=== PATIENT | female | born 1945 | race Caucasian/White ===

== ENCOUNTER → 2020-07-23 08:37 | Outpatient (BNVA) | payer MEDICARE, SELFPAY | PROVIDERS: PCP Nurse Practitioner Primary Care; Referring Provider Nurse Practitioner Primary Care; Visit Provider Internal Medicine Gastroenterology | DX: K22.70 Barrett's esophagus without dysplasia (principal); K59.01 Slow transit constipation | CPT/HCPCS: Q3014 ==

== ENCOUNTER → 2020-10-22 10:20 | Outpatient (BNVA) | payer MEDICARE, SELFPAY | PROVIDERS: PCP Nurse Practitioner Primary Care; Visit Provider Internal Medicine Gastroenterology | CPT/HCPCS: Q3014 ==

== ENCOUNTER 2020-12-01 11:05 | Day surgery (SDC) | payer MEDICARE, OTHER, SELFPAY ==
[2020-11-26 14:58] VITALS: BMI 19.5
--- NOTE | 2020-11-30 08:44 | HO.ANESPROP2 ---
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 Mother Hx of heat stroke Surgical History Surgical History History of breast lump/mass excision History of colonoscopy History of hysterectomy Hx of bilateral mastectomy Hx of cornea transplant Hx of endoscopy Social History Social History (Updated 11/26/20 @ 14:57 by Allison Gonzalez) Household Members: None Alcohol intake: never Smoking Status: Never smoker Use of substances other than those prescribed or required for medical reasons: No Advance Directives: No Advance Directives Information Provided: No Advance Directives on File: No Current occupational status: retired Meds Allergies Allergy/AdvReac Type Severity Reaction Status Date / Time clive [CLIVE] Allergy Severe Hives, Verified 11/26/20 14:56 facial swelling Penicillins [PCN] Allergy Severe HIVES Verified 11/26/20 14:56 poison maral extract Allergy Severe Hives, Verified 11/26/20 14:56 [POISON MARAL] facial swelling bee pollen [bee stings] Allergy Anaphylaxis Verified 11/26/20 14:57 Home Medications Medication Instructions Recorded Confirmed Last Taken Type amitriptyline 0.5 tab PO 3XW 11/26/20 11/26/20 Unknown History carboxymethylcellulose sodium 1 drp OPHTHALMIC (EYE) BID 11/26/20 11/26/20 Unknown History [Refresh Celluvisc] coQ10 (ubiquinol) 200 mg PO DAILY 11/26/20 11/26/20 Unknown History cyclosporine [Restasis] drp 11/26/20 Unknown History famotidine 40 mg PO BEDTIME 11/26/20 11/26/20 Unknown History fluoxetine 1 cap PO DAILY 11/26/20 11/26/20 Unknown History iron 11/26/20 Unknown History losartan 1 tab PO DAILY 11/26/20 11/26/20 Unknown History magnesium tab PO 11/26/20 Unknown History metformin 1 tab PO BID 11/26/20 11/26/20 Unknown History bocykcbdqedj-bkunfqbi-xxcwai 1 tab PO DAILY 11/26/20 11/26/20 Unknown History [Multivitamin 50 Plus] omega-3 fatty acids [Fish Oil] 1,000 mg PO DAILY 11/26/20 11/26/20 Unknown History oxcarbazepine tab PO 11/26/20 Unknown History pravastatin tab PO 11/26/20 Unknown History vit C,Y-Nm-vxhzf-lutein-zeaxan 1 tab PO BID 11/26/20 11/26/20 Unknown History [PreserVision AREDS-2] vitamin B complex [Super B Complex] 1 cap PO DAILY 11/26/20 11/26/20 Unknown History white petrolatum-mineral oil 1 appl OPHTHALMIC (EYE) BEDTIME 11/26/20 11/26/20 Unknown History [Systane Nighttime] zolpidem 1 tab PO BEDTIME PRN 11/26/20 11/26/20 Unknown History Exam Exam Date and Time: November 30, 2020 0844 Height,Weight and Vital Signs: Height 5 ft Weight 45.359 kg Narrative Narrative: EKG 2019: NSR, LAD, LBBB Assessment and Plan Assessment Anesthesia Assessment: Chart Reviewed Documented by User: Lou Crespo 12/01/20 12:04 [facility] Past Medical History Medical History Anxiety Arthritis DDD (degenerative disc disease) Depression Diabetes Elevated cholesterol GERD (gastroesophageal reflux disease) History of anemia HTN (hypertension) HX: breast cancer Left bundle branch block (LBBB) Low back pain Macular degeneration Weakness Family History Family History (Updated 07/23/20 @ 08:40 by Cristal Anderson CMA) Father No problems noted. Mother Hx of heat stroke Surgical History Surgical History History of breast lump/mass excision History of colonoscopy History of hysterectomy Hx of bilateral mastectomy Hx of cornea transplant Hx of endoscopy Social History Social History (Updated 11/26/20 @ 14:57 by Allison Gonzalez) Household Members: None Alcohol intake: never Smoking Status: Never smoker Use of substances other than those prescribed or required for medical reasons: No Advance Directives: No Advance Directives Information Provided: No Advance Directives on File: No Current occupational status: retired Meds Allergies Allergy/AdvReac Type Severity Reaction Status Date / Time clive [CLIVE] Allergy Severe Hives, Verified 11/26/20 14:56 facial swelling Penicillins [PCN] Allergy Severe HIVES Verified 11/26/20 14:56 poison maral extract Allergy Severe Hives, Verified 11/26/20 14:56 [POISON MARAL] facial swelling bee pollen [bee stings] Allergy Anaphylaxis Verified 11/26/20 14:57 Home Medications Medication Instructions Recorded Confirmed Last Taken Type amitriptyline 0.5 tab PO 3XW 11/26/20 11/26/20 Unknown History carboxymethylcellulose sodium 1 drp OPHTHALMIC (EYE) BID 11/26/20 11/26/20 Unknown History [Refresh Celluvisc] coQ10 (ubiquinol) 200 mg PO DAILY 11/26/20 11/26/20 Unknown History cyclosporine [Restasis] drp 11/26/20 Unknown History famotidine 40 mg PO BEDTIME 11/26/20 11/26/20 Unknown History fluoxetine 1 cap PO DAILY 11/26/20 11/26/20 Unknown History iron 11/26/20 Unknown History losartan 1 tab PO DAILY 11/26/20 11/26/20 Unknown History magnesium tab PO 11/26/20 Unknown History metformin 1 tab PO BID 11/26/20 11/26/20 Unknown History uiymowjxmmbv-echydqwo-yphmqm 1 tab PO DAILY 11/26/20 11/26/20 Unknown History [Multivitamin 50 Plus] omega-3 fatty acids [Fish Oil] 1,000 mg PO DAILY 11/26/20 11/26/20 Unknown History oxcarbazepine tab PO 11/26/20 Unknown History pravastatin tab PO 11/26/20 Unknown History vit C,Q-Km-vhxqk-lutein-zeaxan 1 tab PO BID 11/26/20 11/26/20 Unknown History [PreserVision AREDS-2] vitamin B complex [Super B Complex] 1 cap PO DAILY 11/26/20 11/26/20 Unknown History white petrolatum-mineral oil 1 appl OPHTHALMIC (EYE) BEDTIME 11/26/20 11/26/20 Unknown History [Systane Nighttime] zolpidem 1 tab PO BEDTIME PRN 11/26/20 11/26/20 Unknown History Exam Airway Mallampati Class: II (Missing multil tet) TM Dist: >3cm Neck ROM: Full Heart: RRr Lungs: CTa BL Assessment and Plan Assessment Anesthesia Assessment: Anesthesia Plan Discussed and Chart Reviewed Final Anesthetic Review NPO: Yes (Sip water with meds) ASA Class: III Final Preanesthetic Review: No Changes in Pt Med Stat and Consent Obtained/Reviewed Patient Risk: Intermediate Procedure Risk: Intermediate Anesthetic Plan Anesthetic Plan: MAC: Disposition: Standard PACU
[2020-12-01 11:46] LABS: Glucose, Whole Blood 152 mg/dL (60-115)
[2020-12-01 11:47] VITALS: BP 130/61; PULSE 78; RESP 18; TEMP 36.4; O2SAT 98
[2020-12-01] MEDS: Lactated Ringers 1,000 ML 100 ML IVCONT (11:53)
--- NOTE | 2020-12-01 11:57 | P.HPSUR_ITS ---
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 Relevant Family History (Specify if Yes): No Relevant Social History: None Present Medications: see Short Stay Collaborative assessment Medical History: Significant History (Anxiety Arthritis DDD (degenerative disc disease) Depression Diabetes Elevated cholesterol GERD (gastroesophageal reflux disease) History of anemia HTN (hypertension) HX: breast cancer Left bundle branch block (LBBB) Low back pain Macular degeneration Weakness) History of Previous Operations: Relevant previous surgery/procedure and date(s) (History of breast lump/mass excision History of colonoscopy History of hysterectomy Hx of bilateral mastectomy Hx of cornea transplant Hx of endoscopy) Allergies: Allergies Allergy/AdvReac Type Severity Reaction Status Date / Time clive [CLIVE] Allergy Severe Hives, Verified 11/26/20 14:56 facial swelling Penicillins [PCN] Allergy Severe HIVES Verified 11/26/20 14:56 poison maral extract Allergy Severe Hives, Verified 11/26/20 14:56 [POISON MARAL] facial swelling bee pollen [bee stings] Allergy Anaphylaxis Verified 11/26/20 14:57 Review of Systems Sugical H&P ROS: Negative: Constitution, Cardiovascular, Respiratory, Neurological, Psychiatric, Hem-Onc, Allergic/Immunologic, Gastrointestinal, Genitourinary, Musculoskeletal, Integumentary, Endocrine and Eyes/Ears/Nose/Throat Exam Surgical H&P Exam: Normal: HEENT, Normal: Heart, Normal: Lungs, Normal: Ex tremities, Normal: Abdomen, Normal: Skin and Normal: Neurological Plan Diagnosis/Plan: Unchanged I have reviewed the history and physical and performed a pertinent physical examination on my patient. No changes have occurred unless specified.
--- NOTE | 2020-12-01 13:05 | PM.OP ---
Brief Operative Note Date of Service: 12/01/20 Pre-op diagnosis: barretts with indefinite dysplasia Post-op diagnosis: same Procedure: see op note Surgeon: Suman Willett MD Anesthesia: MAC Estimated blood loss (mL): 0 Condition: stable Disposition: PACU
--- NOTE | 2020-12-01 13:06 | W.PM.OPN ---
Operative Note Operative Note Date of Service: 12/01/20 Narrative: Procedure Description: EGD FLEXIBLE TRANSORAL UPPER GASTROINTESTINAL ENDOSCOPY UPPER ENDOSCOPY Consent: Indications for the procedure and potential complications of bleeding, perforation, reaction to medications and missed diagnosis were discussed with the patient and informed consent was obtained. Instrument: Olympus GIF H 190 J mid size upper endoscope Monitoring: Vital signs and clinical assessment, continuous EKG monitoring, Pulse oximetry, Carbon Dioxide monitoring and blood pressure monitoring were done throughout the procedure. Procedure: The patient was placed in the left lateral decubitis position and pre-procedure medications were administered and a bite block was placed. The endoscope was inserted into the mouth and advanced under direct vision to the third part of duodenum. A careful inspection was made as the upper endoscope was withdrawn including a retroflexed examination of the proximal stomach; Findings and interventions are described below. Findings: Larynx:normal Esophagus: GE junction at 38 cm, diaphragm hiatus at 40 cm, salmon pink mucosa noted consistent with Barretts esophagus (this was better appreciated today as we used a distal attachment as compared to prior exams). this appeared to be [place] classification C1M3. The side with the tmucosal tongues was raised using the ERBE jet and then ablated with APC 60 W. This was then desloughed using the distal cap and then reablated with 40 W of APC. Stomach: Normal mucosa. Grade 3 flap valve on retroflexed examination of the cardia. Duodenum: Normal bulb and descending duodenum Intervention: Hybrid APC ablation of Garcia mucosa Impression/Findings: Barretts hiatal hernia PLAN: cont with PPI soft diet today and advance tomorrow as tolerated repeat EGD in 12 weeks
[2020-12-01 13:08] VITALS: BP 105/46; PULSE 99; RESP 16; TEMP 36.3; O2SAT 97
[2020-12-01 13:23] VITALS: BP 127/53; PULSE 83; RESP 17; TEMP 36.3; O2SAT 99
[2020-12-01 13:38] VITALS: BP 141/73; PULSE 82; RESP 18; O2SAT 99
[2020-12-01 13:53] VITALS: BP 125/85; PULSE 80; RESP 18; O2SAT 99
== END 2020-12-01 14:22 | disposition home or self-care (01) ==
PROVIDERS: PCP Nurse Practitioner Primary Care; Visit Provider Internal Medicine Gastroenterology
PROC: 0DJ08ZZ Inspection of Upper Intestinal Tract, Via Natural or Artificial Opening Endoscopic (ICD-10-PCS; CPT 43235; principal; 2020-12-01 12:30)
DX: K22.719 Barrett's esophagus with dysplasia, unspecified (principal); K44.9 Diaphragmatic hernia without obstruction or gangrene; E11.9 Type 2 diabetes mellitus without complications; I10 Essential (primary) hypertension; Z79.84 Long term (current) use of oral hypoglycemic drugs; Z79.899 Other long term (current) drug therapy; Z85.3 Personal history of malignant neoplasm of breast; Z92.21 Personal history of antineoplastic chemotherapy; Z92.3 Personal history of irradiation; Z88.0 Allergy status to penicillin
CPT/HCPCS: 43270; 82947; C2618; Q9968

== ENCOUNTER 2021-03-03 09:19 | Day surgery (SDC) | payer MEDICARE, OTHER, SELFPAY ==
[2021-02-25 14:20] VITALS: BMI 19.5
[2021-03-03 09:48] VITALS: BP 166/79; PULSE 69; RESP 16; TEMP 36.8; O2SAT 99
--- NOTE | 2021-03-03 10:02 | HO.ANESPROP2 ---
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 Mother Hx of heat stroke Surgical History Surgical History History of breast lump/mass excision History of colonoscopy History of hysterectomy Hx of bilateral mastectomy Hx of cornea transplant Hx of endoscopy Social History Social History (Updated 11/26/20 @ 14:57 by Allison Gonzalez) Household Members: None Alcohol intake: never Patient Tobacco Use Status: Never used Tobacco Use of substances other than those prescribed or required for medical reasons: No Advance Directives: No Advance Directives Information Provided: No Advance Directives on File: No Current occupational status: retired Meds Allergies Allergy/AdvReac Type Severity Reaction Status Date / Time clive [CLIVE] Allergy Severe Hives, Verified 03/03/21 10:01 facial swelling Penicillins [PCN] Allergy Severe HIVES Verified 03/03/21 10:01 poison maral extract Allergy Severe Hives, Verified 03/03/21 10:01 [POISON MARAL] facial swelling bee pollen [bee stings] Allergy Anaphylaxis Verified 03/03/21 10:01 Home Medications Medication Instructions Recorded Confirmed Last Taken Type amitriptyline 0.5 tab PO 3XW 11/26/20 02/25/21 Unknown History carboxymethylcellulose sodium 1 drp OPHTHALMIC (EYE) BID 11/26/20 02/25/21 Unknown History [Refresh Celluvisc] coQ10 (ubiquinol) 200 mg PO DAILY 11/26/20 02/25/21 Unknown History cyclosporine [Restasis] drp 11/26/20 Unknown History fluoxetine 1 cap PO DAILY 11/26/20 02/25/21 Unknown History iron 11/26/20 Unknown History losartan 1 tab PO DAILY 11/26/20 02/25/21 Unknown History magnesium tab PO 11/26/20 Unknown History metformin 1 tab PO BID 11/26/20 02/25/21 Unknown History kkrbuwtbzxoc-resdutqt-cloqzv 1 tab PO DAILY 11/26/20 02/25/21 Unknown History [Multivitamin 50 Plus] omega-3 fatty acids [Fish Oil] 1,000 mg PO DAILY 11/26/20 02/25/21 Unknown History oxcarbazepine tab PO 11/26/20 Unknown History pravastatin tab PO 11/26/20 Unknown History vit C,M-Zo-ialxu-lutein-zeaxan 1 tab PO BID 11/26/20 02/25/21 Unknown History [PreserVision AREDS-2] vitamin B complex [Super B Complex] 1 cap PO DAILY 11/26/20 02/25/21 Unknown History white petrolatum-mineral oil 1 appl OPHTHALMIC (EYE) BEDTIME 11/26/20 02/25/21 Unknown History [Systane Nighttime] zolpidem 1 tab PO BEDTIME PRN 11/26/20 02/25/21 Unknown History Exam Exam Date and Time: March 03, 2021 1002 Height,Weight and Vital Signs: Height 5 ft Weight 99 lb 13.91 oz Last Vital Signs Temp 98.2 F 03/03/21 09:48 Pulse 69 03/03/21 09:48 Resp 16 03/03/21 09:48 BP 166/79 H 03/03/21 09:48 Pulse Ox 99 03/03/21 09:48 Airway TM Dist: >3cm Neck ROM: Full Denture: Upper Loose/Missing/Broken Teeth: No Heart: RRRNL Assessment and Plan Assessment Anesthesia Assessment: Anesthesia Plan Discussed and Chart Reviewed Final Anesthetic Review NPO: Yes ASA Class: III Final Preanesthetic Review: No Changes in Pt Med Stat, Meds/Allgs Chart Reviewed, Consent Obtained/Reviewed and Anes Risks/Benef Reviewed Patient Risk: Intermediate Procedure Risk: Low Anesthetic Plan Anesthetic Plan: MAC: Disposition: Standard PACU
[2021-03-03 10:06] LABS: Glucose, Whole Blood 151 mg/dL (60-115)
[2021-03-03] MEDS: Lactated Ringers 1,000 ML 50 ML IVCONT (10:23)
--- NOTE | 2021-03-03 10:34 | P.HPSUR_ITS ---
Pre-Procedural Eval Section A Date of Service: 03/03/21 Section B Chief Complaint: barretts esophagus Relevant Family History (Specify if Yes): No Relevant Social History: None Present Medications: see Short Stay Collaborative assessment Medical History: Significant History (Anxiety Arthritis Garcia esophagus DDD (degenerative disc disease) Depression Diabetes Elevated cholesterol GERD (gastroesophageal reflux disease) History of anemia HTN (hypertension) HX: breast cancer Left bundle branch block (LBBB) Low back pain Macular degeneration Weakness) History of Previous Operations: Relevant previous surgery/procedure and date(s) (History of breast lump/mass excision History of colonoscopy History of hysterectomy Hx of bilateral mastectomy Hx of cornea transplant Hx of endoscopy) Allergies: Allergies Allergy/AdvReac Type Severity Reaction Status Date / Time clive [CLIVE] Allergy Severe Hives, Verified 03/03/21 10:01 facial swelling Penicillins [PCN] Allergy Severe HIVES Verified 03/03/21 10:01 poison maral extract Allergy Severe Hives, Verified 03/03/21 10:01 [POISON MARAL] facial swelling bee pollen [bee stings] Allergy Anaphylaxis Verified 03/03/21 10:01 Review of Systems Sugical H&P ROS: Negative: Constitution, Cardiovascular, Respiratory, Neurological, Psychiatric, Hem-Onc, Allergic/Immunologic, Gastrointestinal, Genitourinary, Musculoskeletal, Integumentary, Endocrine and Eyes/Ears/Nose /Throat Exam Surgical H&P Exam: Normal: HEENT, Normal: Heart, Normal: Lungs, Normal: Extremities, Normal: Abdomen, Normal: Skin and Normal: Neurological Plan Diagnosis/Plan: Unchanged I have reviewed the history and physical and performed a pertinent physical examination on my patient. No changes have occurred unless specified.
--- NOTE | 2021-03-03 10:36 | P.BOP_ITS ---
Brief Operative Note Date of Service: 03/03/21 Pre-op diagnosis: barretts, for treatment with hybrid APC Post-op diagnosis: same Procedure: see op note Surgeon: Suman Willett MD Anesthesia: MAC Was an Electric Detector Operator used for this Procedure?: No Estimated blood loss (mL): 0 Condition: stable Disposition: PACU
--- NOTE | 2021-03-03 10:36 | W.PM.OPN ---
Operative Note Operative Note Date of Service: 03/03/21 Narrative: Procedure Description: EGD FLEXIBLE TRANSORAL UPPER GASTROINTESTINAL ENDOSCOPY UPPER ENDOSCOPY Consent: Indications for the procedure and potential complications of bleeding, perforation, reaction to medications and missed diagnosis were discussed with the patient and informed consent was obtained. Instrument: Olympus GIF H 190 J mid size upper endoscope Monitoring: Vital signs and clinical assessment, continuous EKG monitoring, Pulse oximetry, Carbon Dioxide monitoring and blood pressure monitoring were done throughout the procedure. Procedure: The patient was placed in the left lateral decubitis position and pre-procedure medications were administered and a bite block was placed. The endoscope was inserted into the mouth and advanced under direct vision to the third part of duodenum. A careful inspection was made as the upper endoscope was withdrawn including a retroflexed examination of the proximal stomach; Findings and interventions are described below. Findings: Larynx:normal Esophagus: GE junction at 38 cm, diaphragm hiatus at 40 cm, salmon pink mucosa noted consistent with Barretts esophagus C0 M1 by [place] classification which was much improved from before. There was mild esophagitis at the GEJ. Biopsies were taken as well as brushings for WATS3D. The side with the mucosal tongue was raised using the ERBE jet and then ablated with APC 60 W. Stomach: Normal mucosa. Grade 3 flap valve on retroflexed examination of the cardia. Duodenum: Normal bulb and descending duodenum Intervention: Hybrid APC ablation of Garcia mucosa Impression/Findings: Barretts hiatal hernia PLAN: cont with PPI soft diet today and advance tomorrow as tolerated repeat EGD in 12 weeks pt did vomit a small amount during the procedure and suctioned thoroughly, will need to monitor for aspiration in post op
[2021-03-03 11:44] VITALS: BP 134/67; PULSE 78; RESP 14; TEMP 36.2; O2SAT 97
[2021-03-03] MEDS: Mag&Al/Sim/Diphenhyd/Lidocaine 10 ML ORAL.SUSP PO (11:59)
[2021-03-03 12:00] VITALS: BP 142/76; PULSE 72; RESP 16; O2SAT 97
[2021-03-03] MEDS: Pantoprazole Sodium 40 MG/10 ML VIAL IVPUSH (12:03)
[2021-03-03 12:15] VITALS: BP 146/80; PULSE 74; RESP 16; O2SAT 99
[2021-03-03 12:29] VITALS: BP 124/82; PULSE 73; RESP 16; TEMP 36.2; O2SAT 99
[2021-03-03 12:45] VITALS: BP 164/78; PULSE 66; RESP 16; O2SAT 98
[2021-03-03] MEDS: Acetaminophen 325 MG TABLET 975 MG PO (12:57)
== END 2021-03-03 13:32 | disposition home or self-care (01) ==
PROVIDERS: PCP Nurse Practitioner Primary Care; Visit Provider Internal Medicine Gastroenterology
PROC: 0DJ08ZZ Inspection of Upper Intestinal Tract, Via Natural or Artificial Opening Endoscopic (ICD-10-PCS; CPT 43235; principal; 2021-03-03 10:40)
DX: K22.70 Barrett's esophagus without dysplasia (principal); K21.9 Gastro-esophageal reflux disease without esophagitis; K20.80 Other esophagitis without bleeding; K44.9 Diaphragmatic hernia without obstruction or gangrene; E11.9 Type 2 diabetes mellitus without complications; I10 Essential (primary) hypertension; I44.7 Left bundle-branch block, unspecified; Z85.3 Personal history of malignant neoplasm of breast; Z92.21 Personal history of antineoplastic chemotherapy; Z92.3 Personal history of irradiation; Z94.7 Corneal transplant status; Z79.84 Long term (current) use of oral hypoglycemic drugs; Z79.899 Other long term (current) drug therapy
CPT/HCPCS: 43270; 43239; 82947; 88305; C2618; J2405; Q9968

== ENCOUNTER → 2021-03-28 13:22 | Outpatient (BNVA) | payer MEDICARE, MEDICAID, SELFPAY | PROVIDERS: PCP Nurse Practitioner Primary Care; Visit Provider Internal Medicine Gastroenterology | DX: K22.719 Barrett's esophagus with dysplasia, unspecified (principal); K59.01 Slow transit constipation | CPT/HCPCS: Q3014 ==

== ENCOUNTER 2021-06-23 10:07 | Day surgery (SDC) | payer MEDICARE, OTHER, SELFPAY ==
--- NOTE | 2021-06-22 10:12 | HO.ANESPROP2 ---
Documented by User: Audra Wild NP 06/22/21 10:12 HPI - Anesthesia Eval Consult details Narrative: 76yo F for Upper Endoscopy with APC PMFSH Active Problems Active Problems: All Active Problems (Updated 06/17/21 @ 14:04 by Xiomara Vargas, RN) Garcia esophagus (Acute) Constipation by delayed colonic transit (Acute) Past Medical History Medical History (Updated 06/17/21 @ 14:04 by Xiomara Vargas, RN) Anxiety Arthritis Garcia esophagus Cataract fragments in eye following surgery DDD (degenerative disc disease) Depression Diabetes Elevated cholesterol GERD (gastroesophageal reflux disease) Hiatal hernia History of anemia HTN (hypertension) HX: breast cancer Left bundle branch block (LBBB) Low back pain Macular degeneration Weakness Family History Family History Father No problems noted. Mother Hx of heat stroke Surgical History Surgical History History of breast lump/mass excision History of colonoscopy History of hysterectomy Hx of bilateral mastectomy Hx of cornea transplant Hx of endoscopy Social History Social History Household Members: None Alcohol intake: never Patient Tobacco Use Status: Never used Tobacco Use of substances other than those prescribed or required for medical reasons: No Are you DNR?: No Advance Directives: No Advance Directives Information Provided: Yes Current occupational status: retired Meds Allergies Allergy/AdvReac Type Severity Reaction Status Date / Time clive [CLIVE] Allergy Severe Hives, Verified 03/28/21 13:23 facial swelling Penicillins [PCN] Allergy Severe HIVES Verified 03/28/21 13:23 poison maral extract Allergy Severe Hives, Verified 03/28/21 13:23 [POISON MARAL] facial swelling bee pollen [bee stings] Allergy Anaphylaxis Verified 03/28/21 13:23 Home Medications Medication Instructions Recorded Confirmed Last Taken Type carboxymethylcellulose sodium 1 % 1 drp OPHTHALMIC (EYE) BID 11/26/20 06/17/21 Unknown History eye drops in a dropperette coQ10 (ubiquinol) 100 mg capsule 200 mg PO DAILY 11/26/20 06/17/21 Unknown History cyclosporine 0.05 % eye drops in a drp 11/26/20 Unknown History dropperette (Restasis) fluoxetine 20 mg capsule 1 cap PO DAILY 11/26/20 06/17/21 Unknown History iron 11/26/20 Unknown History losartan 25 mg tablet 1 tab PO DAILY 11/26/20 06/17/21 Unknown History magnesium tab PO 11/26/20 Unknown History metformin 1,000 mg tablet 1 tab PO BID 11/26/20 06/17/21 Unknown History pmwkvdxmoiyf-txoktlop-rvmieo 1 tab PO DAILY 11/26/20 06/17/21 Unknown History tablet (Multivitamin 50 Plus) omega-3 fatty acids 1,000 mg PO DAILY 11/26/20 06/17/21 Unknown History oxcarbazepine 300 mg tablet 300 tab PO DAILY 11/26/20 06/17/21 Unknown History pravastatin 10 mg tablet 10 tab PO DAILY 11/26/20 06/17/21 Unknown History vit C 250 mg-vit E 90 mg-zinc 40 1 tab PO BID 11/26/20 06/17/21 Unknown History mg-copper 1 iw-amzsop-wdocie capsule (PreserVision AREDS-2) vitamin B complex 1 cap PO DAILY 11/26/20 06/17/21 Unknown History white petrolatum-mineral oil 94 1 appl OPHTHALMIC (EYE) BEDTIME 11/26/20 06/17/21 Unknown History %-3 % eye ointment (Systane Nighttime) zolpidem 10 mg tablet 1 tab PO BEDTIME PRN 11/26/20 06/17/21 Unknown History Exam Exam Date and Time: June 22, 2021 1012 Assessment and Plan Assessment Anesthesia Assessment: Chart Reviewed Documented by User: Sara Quiros MD 06/23/21 10:33 [facility], [facility] Past Medical History Medical History (Updated 06/17/21 @ 14:04 by Xiomara Vargas RN) Anxiety Arthritis Garcia esophagus Cataract fragments in eye following surgery DDD (degenerative disc disease) Depression Diabetes Elevated cholesterol GERD (gastroesophageal reflux disease) Hiatal hernia History of anemia HTN (hypertension) HX: breast cancer Left bundle branch block (LBBB) Low back pain Macular degeneration Weakness Functional capacity: independent ambulation Patient : No Family History Family History Father No problems noted. Mother Hx of heat stroke Surgical History Surgical History History of breast lump/mass excision History of colonoscopy History of hysterectomy Hx of bilateral mastectomy Hx of cornea transplant Hx of endoscopy History of Problems with Anesthesia: No Social History Social History Household Members: None Alcohol intake: never Patient Tobacco Use Status: Never used Tobacco Use of substances other than those prescribed or required for medical reasons: No Are you DNR?: No Advance Directives: No Advance Directives Information Provided: Yes Current occupational status: retired Meds Allergies Allergy/AdvReac Type Severity Reaction Status Date / Time clive [CLIVE] Allergy Severe Hives, Verified 03/28/21 13:23 facial swelling Penicillins [PCN] Allergy Severe HIVES Verified 03/28/21 13:23 poison maral extract Allergy Severe Hives, Verified 03/28/21 13:23 [POISON MARAL] facial swelling bee pollen [bee stings] Allergy Anaphylaxis Verified 03/28/21 13:23 Home Medications Medication Instructions Recorded Confirmed Last Taken Type carboxymethylcellulose sodium 1 % 1 drp OPHTHALMIC (EYE) BID 11/26/20 06/17/21 Unknown History eye drops in a dropperette coQ10 (ubiquinol) 100 mg capsule 200 mg PO DAILY 11/26/20 06/17/21 Unknown History cyclosporine 0.05 % eye drops in a drp 11/26/20 Unknown History dropperette (Restasis) fluoxetine 20 mg capsule 1 cap PO DAILY 11/26/20 06/17/21 Unknown History iron 11/26/20 Unknown History losartan 25 mg tablet 1 tab PO DAILY 11/26/20 06/17/21 Unknown History magnesium tab PO 11/26/20 Unknown History metformin 1,000 mg tablet 1 tab PO BID 11/26/20 06/17/21 Unknown History mgthjwstcyky-zacaevjg-cbirud 1 tab PO DAILY 11/26/20 06/17/21 Unknown History tablet (Multivitamin 50 Plus) omega-3 fatty acids 1,000 mg PO DAILY 11/26/20 06/17/21 Unknown History oxcarbazepine 300 mg tablet 300 tab PO DAILY 11/26/20 06/17/21 Unknown History pravastatin 10 mg tablet 10 tab PO DAILY 11/26/20 06/17/21 Unknown History vit C 250 mg-vit E 90 mg-zinc 40 1 tab PO BID 11/26/20 06/17/21 Unknown History mg-copper 1 gn-ulzyun-gsjunu capsule (PreserVision AREDS-2) vitamin B complex 1 cap PO DAILY 11/26/20 06/17/21 Unknown History white petrolatum-mineral oil 94 1 appl OPHTHALMIC (EYE) BEDTIME 11/26/20 06/17/21 Unknown History %-3 % eye ointment (Systane Nighttime) zolpidem 10 mg tablet 1 tab PO BEDTIME PRN 11/26/20 06/17/21 Unknown History Exam Airway TM Dist: >3cm Neck ROM: Full Assessment and Plan Final Anesthetic Review History of Problems with Anesthesia: No
--- NOTE | 2021-06-23 09:44 | MHC.SHP ---
Pre-Procedural Eval Section A Date of Service: 06/23/21 Section B Chief Complaint: barretts esophagus with indefinite dysplasia Relevant Family History (Specify if Yes): No Relevant Social History: None Present Medications: see Short Stay Collaborative assessment Medical History: Significant History (Anxiety Arthritis Garcia esophagus Cataract fragments in eye following surgery DDD (degenerative disc disease) Depression Diabetes Elevated cholesterol GERD (gastroesophageal reflux disease) Hiatal hernia History of anemia HTN (hypertension) HX: breast cancer Left bundle branch block (LBBB) Low ashok) History of Previous Operations: Relevant previous surgery/procedure and date(s) (History of breast lump/mass excision History of colonoscopy History of hysterectomy Hx of bilateral mastectomy Hx of cornea transplant Hx of endoscopy) Allergies: Allergies Allergy/AdvReac Type Severity Reaction Status Date / Time clive [CLIVE] Allergy Severe Hives, Verified 03/28/21 13:23 facial swelling Penicillins [PCN] Allergy Severe HIVES Verified 03/28/21 13:23 poison maral extract Allergy Severe Hives, Verified 03/28/21 13:23 [POISON MARAL] facial swelling bee pollen [bee stings] Allergy Anaphylaxis Verified 03/28/21 13:23 Review of Systems Sugical H&P ROS: Negative: Constitution, Cardiovascular, Respiratory, Neurological, Psychiatric, Hem-Onc, Allergic/Immunologic, Gastrointestinal, Genitourinary, Musculoskeletal, Integumentary, Endocrine and Eyes/Ears/Nose/Throat Exam Surgical H&P Exam: Normal: HEENT, Normal: Heart, Normal: Lungs, Normal: Extremities, Normal: Abdomen, Normal: Skin and Normal: Neurological Plan Diagnosis/Plan: Unchanged I have reviewed the history and physical and performed a pertinent physical examination on my patient. No changes have occurred unless specified.
[2021-06-23 10:21] VITALS: BMI 17.9
[2021-06-23 10:37] VITALS: BP 174/74; PULSE 64; RESP 16; TEMP 36.8; O2SAT 99
[2021-06-23] MEDS: Lactated Ringers 1,000 ML 100 ML IVCONT (10:38)
--- NOTE | 2021-06-23 10:42 | HO.ANESPROP2 ---
[facility] Active Problems Active Problems: All Active Problems (Updated 06/17/21 @ 14:04 by Xiomara Vargas, RN) Garcia esophagus (Acute) Constipation by delayed colonic transit (Acute) Past Medical History Medical History (Updated 06/17/21 @ 14:04 by Xiomara Vargas, RN) Anxiety Arthritis Garcia esophagus Cataract fragments in eye following surgery DDD (degenerative disc disease) Depression Diabetes Elevated cholesterol GERD (gastroesophageal reflux disease) Hiatal hernia History of anemia HTN (hypertension) HX: breast cancer Left bundle branch block (LBBB) Low back pain Macular degeneration Weakness Functional capacity: independent ambulation Family History Family History Father No problems noted. Mother Hx of heat stroke Family history of problems with anesthesia: No Surgical History Surgical History History of breast lump/mass excision History of colonoscopy History of hysterectomy Hx of bilateral mastectomy Hx of cornea transplant Hx of endoscopy History of Problems with Anesthesia: No Social History Social History Household Members: None Alcohol intake: never Patient Tobacco Use Status: Never used Tobacco Use of substances other than those prescribed or required for medical reasons: No Are you DNR?: No Advance Directives: No Advance Directives Information Provided: Yes Patient : No Current occupational status: retired Meds Allergies Allergy/AdvReac Type Severity Reaction Status Date / Time clive [CLIVE] Allergy Severe Hives, Verified 06/23/21 10:42 facial swelling Penicillins [PCN] Allergy Severe HIVES Verified 06/23/21 10:42 poison maral extract Allergy Severe Hives, Verified 06/23/21 10:42 [POISON MARAL] facial swelling bee pollen [bee stings] Allergy Anaphylaxis Verified 06/23/21 10:42 Active Medications: Current Medications Lactated Ringer's (Lr) 1,000 mls @ 100 mls/hr IVCONT .Q10H GERARDO Last Admin: 06/23/21 10:38 Dose: 100 mls/hr Documented by: Home Medications Medication Instructions Recorded Confirmed Last Taken Type carboxymethylcellulose sodium 1 % 1 drp OPHTHALMIC (EYE) BID 11/26/20 06/17/21 Unknown History eye drops in a dropperette coQ10 (ubiquinol) 100 mg capsule 200 mg PO DAILY 11/26/20 06/17/21 Unknown History cyclosporine 0.05 % eye drops in a drp 11/26/20 Unknown History dropperette (Restasis) fluoxetine 20 mg capsule 1 cap PO DAILY 11/26/20 06/17/21 06/23/21 History iron 11/26/20 Unknown History losartan 25 mg tablet 1 tab PO DAILY 11/26/20 06/17/21 Unknown History magnesium tab PO 11/26/20 Unknown History metformin 1,000 mg tablet 1 tab PO BID 11/26/20 06/17/21 Unknown History zeavfrzyzbjy-vtaqxeco-dcpjuj 1 tab PO DAILY 11/26/20 06/17/21 Unknown History tablet (Multivitamin 50 Plus) omega-3 fatty acids 1,000 mg PO DAILY 11/26/20 06/17/21 06/22/21 History oxcarbazepine 300 mg tablet 300 tab PO DAILY 11/26/20 06/17/21 Unknown History pravastatin 10 mg tablet 10 tab PO DAILY 11/26/20 06/17/21 Unknown History vit C 250 mg-vit E 90 mg-zinc 40 1 tab PO BID 11/26/20 06/17/21 Unknown History mg-copper 1 wl-hzefoc-wjauvb capsule (PreserVision AREDS-2) vitamin B complex 1 cap PO DAILY 11/26/20 06/17/21 Unknown History white petrolatum-mineral oil 94 1 appl OPHTHALMIC (EYE) BEDTIME 11/26/20 06/17/21 Unknown History %-3 % eye ointment (Systane Nighttime) zolpidem 10 mg tablet 1 tab PO BEDTIME PRN 11/26/20 06/17/21 Unknown History Exam Exam Date and Time: June 23, 2021 1042 Height,Weight and Vital Signs: Height 5 ft 0.5 in Weight 42.184 kg Last Vital Signs Temp 98.3 F 06/23/21 10:37 Pulse 64 06/23/21 10:37 Resp 16 06/23/21 10:37 BP 174/74 H 06/23/21 10:37 Pulse Ox 99 06/23/21 10:37 Airway TM Dist: >3cm Neck ROM: Full Heart: RRR Lungs: CTA Assessment and Plan Final Anesthetic Review Family History of Problems with Anesthesia: No History of Problems with Anesthesia: No
[2021-06-23 10:43] LABS: Glucose, Whole Blood 206 mg/dL (60-115)
--- NOTE | 2021-06-23 11:17 | PM.OP ---
Brief Operative Note Date of Service: 06/23/21 Pre-op diagnosis: barretts esophagus with indefinite dysplasia Post-op diagnosis: same Procedure: see op note Surgeon: Suman Willett MD Anesthesia: MAC Was an Biomedical Manager used for this Procedure?: No Estimated blood loss (mL): 0 Condition: stable Disposition: PACU
--- NOTE | 2021-06-23 11:18 | P.OP_ITS ---
Operative Note Operative Note Date of Service: 06/23/21 Narrative: Procedure Description: EGD FLEXIBLE TRANSORAL UPPER GASTROINTESTINAL ENDOSCOPY UPPER ENDOSCOPY Consent: Indications for the procedure and potential complications of bleeding, perforation, reaction to medications and missed diagnosis were discussed with the patient and informed consent was obtained. Instrument: Olympus GIF H 190 J mid size upper endoscope Monitoring: Vital signs and clinical assessment, continuous EKG monitoring, Pulse oximetry, Carbon Dioxide monitoring and blood pressure monitoring were done throughout the procedure. Procedure: The patient was placed in the left lateral decubitis position and pre-procedure medications were administered and a bite block was placed. The endoscope was inserted into the mouth and advanced under direct vision to the third part of duodenum. A careful inspection was made as the upper endoscope was withdrawn including a retroflexed examination of the proximal stomach; Findings and interventions are described below. Findings: Larynx:normal Esophagus: GE junction at 38? cm, diaphragm hiatus at 40 cm, few islands of salmon pink mucosa noted consistent with Barretts esophagus C0 M1 by Edwards classification.No esophagitis seen. Biopsies were taken as well as brushings for WATS3D. Stomach: Normal mucosa. Several fundic gland polyps seen.Grade 3 flap valve on retroflexed examination of the cardia. Duodenum: Normal bulb and descending duodenum Intervention: Hybrid APC ablation of Garcia mucosa Impression/Findings: Barretts--much improved hiatal hernia PLAN: await biopsies, if no dysplasia or barretts then repeat EGD in 6-12 months if dysplasia then repeat EGD in 2-3 months with hybrid APC
[2021-06-23 12:22] VITALS: BP 131/53; PULSE 67; RESP 16; TEMP 36.1; O2SAT 99
--- NOTE | 2021-06-23 12:36 | PC.NURSE ---
Dr. Mario at bedside patient c/o sore throat roof of mouth and feeling cold. temp 96.9 Dr. Mario assessed her mouth and throat. will continue to monitor per dr. mario
[2021-06-23 12:37] VITALS: BP 123/66; PULSE 62; RESP 18; TEMP 36.1; O2SAT 99
[2021-06-23] MEDS: Acetaminophen 325 MG TABLET 975 MG PO (12:41)
[2021-06-23] MEDS: Mag&Al/Sim/Diphenhyd/Lidocaine 10 ML ORAL.SUSP PO (12:41)
[2021-06-23 13:08] VITALS: BP 167/64; PULSE 62; RESP 18; TEMP 36.1; O2SAT 100
== END 2021-06-23 13:36 | disposition home or self-care (01) ==
PROVIDERS: PCP Nurse Practitioner Primary Care; Visit Provider Internal Medicine Gastroenterology
PROC: 0DJ08ZZ Inspection of Upper Intestinal Tract, Via Natural or Artificial Opening Endoscopic (ICD-10-PCS; CPT 43235; principal; 2021-06-23 11:00)
DX: K22.719 Barrett's esophagus with dysplasia, unspecified (principal); K44.9 Diaphragmatic hernia without obstruction or gangrene; K31.7 Polyp of stomach and duodenum; E11.9 Type 2 diabetes mellitus without complications; I10 Essential (primary) hypertension; K59.01 Slow transit constipation; Z85.3 Personal history of malignant neoplasm of breast; Z88.0 Allergy status to penicillin
CPT/HCPCS: 43239; 82947; 88305; Q9968

== ENCOUNTER → 2021-07-25 12:40 | Outpatient (BNVA) | payer MEDICARE, MEDICAID, SELFPAY | PROVIDERS: PCP Nurse Practitioner Primary Care; Visit Provider Internal Medicine Gastroenterology | DX: R19.7 Diarrhea, unspecified (principal); R63.4 Abnormal weight loss | CPT/HCPCS: 99212 ==

== ENCOUNTER → 2022-01-23 11:06 | Outpatient (BNVA) | payer MEDICARE, SELFPAY | PROVIDERS: PCP Family Medicine; Visit Provider Internal Medicine Gastroenterology | DX: K22.719 Barrett's esophagus with dysplasia, unspecified (principal); M25.50 Pain in unspecified joint | CPT/HCPCS: 99215; Q3014 ==

== ENCOUNTER 2022-03-13 08:55 | Outpatient (REF) | payer MEDICARE, OTHER, SELFPAY ==
--- NOTE | ~2022-03-13 | CT_ITS ---
EXAMINATION: CT ENTEROGRAPHY ABDOMEN AND PELVIS WITH CONTRAST CLINICAL INFORMATION: Periumbilical pain COMPARISON: Previous CT of the abdomen and pelvis May 2019 and MRI of the abdomen May 2019 TECHNIQUE: Study performed with oral VoLumen (1350 mL) and 480 mL of water to distend the abdomen. The patient was injected with 85 mL Omnipaque 350 intravenous contrast which was administered without adverse effect. Coronal and sagittal reformatted images were obtained at the technologist's workstation. This CT examination was performed using dose optimization techniques as appropriate, variously including the following: *Automated exposure control *Adjustment of mA and/or kV according to patient size (this includes techniques or standardized protocols for targeted exams where dose is matched to indication/reason for exam; i.e. extremities or head) *Use of iterative reconstruction technique DLP: 191 mGy-cm FINDINGS: GASTROINTESTINAL FINDINGS: Stomach: Well-distended and normal in appearance. Small intestine: Satisfactorily distended and normal in appearance. Large intestine: Well-distended and normal in appearance. No perirectal changes demonstrated. The appendix is normal. Additional findings: No abnormal enhancement of the vasa recta or significant mesenteric or retroperitoneal lymphadenopathy is seen. No abdominal abscess or fistulous tract demonstrated. ABDOMINAL AND PELVIC CT FINDINGS: Liver, gallbladder, biliary tract: Normal Pancreas: There are 2 adjacent small cysts in the head of the pancreas largest measuring 2 x 5 mm axial image 214 series 3 that appears stable. The pancreas is otherwise normal. Spleen: Normal Adrenal glands and kidneys: Normal Ureters and bladder: Normal Lymphovascular structures: There are small, small bowel mesentery lymph nodes. No enlarged lymph nodes. No ascites. Bones: Degenerative disc disease L5-S1. Lung bases: Small left lower lobe pulmonary nodules that are stable. CT/CT enterography IMPRESSION: Unremarkable CT enterography exam. Normal-appearing appendix. Stable small cysts in the pancreas.
[2022-03-13 09:16] LABS: MANUAL DIFF FLAG NO
[2022-03-13 09:29] LABS: Basophils Absolute Auto 0.1 X10*3/uL (0.0-0.2); Basophils Percent Auto 0.8 % (0-2); Eosinophils Absolute Auto 0.2 X10*3/uL (0.0-0.4); Hematocrit 35.3 % (37.0-47.0); Imm Gran Abs Auto 0.03 X10*3/uL (0.00-0.03); Imm Gran Pct Auto 0.4 % (0.0-0.4); Lymphocytes Absolute Auto 1.2 X10*3/uL (1.2-4.9); Lymphocytes Percent Auto 14.6 % (20-40); Mean Corpuscular Hemoglobin 30.2 pg (27.0-33.0); Mean Corpuscular Volume 88.9 fL (80.0-98.0); Mean Platelet Volume 8.8 fL (9.4-12.3); Monocytes Absolute Auto 0.5 X10*3/uL (0.1-1.2); Monocytes Percent Auto 6.3 % (2-11); Neutrophils Percent Auto 74.9 % (45-73); Platelet Count 271 X10*3/uL (160-400); Red Blood Count 3.97 X10*6/uL (4.20-5.50); Red Cell Distribution Width 12.4 % (11.0-16.0)
[2022-03-13 09:54] LABS: Alanine Aminotransferase 12 U/L (0-31); Albumin Level 4.4 g/dL (3.5-5.0); Alkaline Phosphatase 61 U/L (39-117); Anion Gap 15 (12-20); Aspartate Amino Transferase 18 U/L (5-31); Bilirubin Total 0.5 mg/dL (0.0-1.0); Blood Urea Nitrogen 21 mg/dL (9-16); C Reactive Protein 0.08 mg/dL (< or = 0.50); Calcium 9.7 mg/dL (8.4-10.2); Carbon Dioxide 26 mmol/L (22-29); Chloride 101 mmol/L (96-108); Estimated Glomerular Filt Rate 46; Glucose Random 149 mg/dL (60-115); Potassium 4.3 mmol/L (3.3-5.1); Sodium 138 mmol/L (135-145)
[2022-03-13 10:07] LABS: Rheumatoid Factor < 15.0 IU/mL (<15.0)
[2022-03-13 10:11] LABS: Ferritin 80 ng/mL (10-250); TSH reflex Free T4 1.06 uIU/mL (0.32-4.0); Vitamin D 25-OH Total 39.7 ng/mL (>30)
[2022-03-13 10:19] LABS: Erythrocyte Sedimentation Rate 14 MM/HR (0-20)
[2022-03-13 10:55] LABS: Appearance Urine HAZY; Color Urine YELLOW; Glucose Urine UA NEG (NEG); Leukocyte Esterase Urine 3+ (NEG); Nitrite Urine NEG (NEG); UACC Culture Trigger YES; Urine Blood TRACE (NEG); Urine Ketones NEG (NEG); Urine Protein TRACE MG/DL (NEG-TRACE)
[2022-03-13 11:05] LABS: Bacteria Urine 4+ /LPF; WBC Urine TNTC /HPF (0-4)
[2022-03-13 11:06] LABS: RBC Urine 0 /HPF (0); Squamous Epithelial Cell Urine TRACE /LPF
[2022-03-13] MEDS: Sorbitol/Mannit/Xanth Imaging 500 ML LIQUID 1500 ML PO (11:06)
[2022-03-13 11:55] LABS: Folate > 20.0 ng/mL (> or = 4.0); Vitamin B12 737 pg/mL (200-900)
[2022-03-13] MEDS: iohexoL 350 MG/ML 100 ML INFUS..BTL 85 ML IV (11:57)
[2022-03-15 11:46] LABS: Anti Nuclear Antibody Screen NEGATIVE (NEGATIVE); Cyclic Citrullinated Peptide <16 UNITS
[2022-03-17 10:51] LABS: Vitamin C 2.2 mg/dL (0.3-2.7)
== END 2022-03-13 08:56 | disposition home or self-care (01) ==
LOC: HO.CT 08:55
PROVIDERS: PCP Family Medicine; Visit Provider Internal Medicine Gastroenterology
DX: R10.33 Periumbilical pain (principal); R63.4 Abnormal weight loss; R79.82 Elevated C-reactive protein (CRP); K75.81 Nonalcoholic steatohepatitis (NASH); R19.7 Diarrhea, unspecified; E55.9 Vitamin D deficiency, unspecified
CPT/HCPCS: 36415; 74177; 80053; 81001; 82180; 82306; 82607; 82728; 82746; 84443; 85025; 85652; 86038; 86039; 86140; 86200; 86431; 87086; 87088; 87186; Q9967

== ENCOUNTER 2022-04-05 10:11 | Outpatient (REF) | payer MEDICARE, OTHER, SELFPAY ==
[2022-04-05 11:27] LABS: Appearance Urine HAZY; Color Urine YELLOW; Glucose Urine UA NEG (NEG); Leukocyte Esterase Urine NEG (NEG); Nitrite Urine NEG (NEG); Urine Blood NEG (NEG); Urine Ketones NEG (NEG); Urine Protein TRACE MG/DL (NEG-TRACE)
[2022-04-05 13:48] LABS: Blood Urea Nitrogen 15 mg/dL (9-16); Estimated Glomerular Filt Rate 55
== END 2022-04-05 10:12 | disposition home or self-care (01) ==
LOC: HO.LAB 10:11
PROVIDERS: Visit Provider Internal Medicine Gastroenterology
DX: R63.4 Abnormal weight loss (principal); N39.0 Urinary tract infection, site not specified; R19.7 Diarrhea, unspecified
CPT/HCPCS: 36415; 81003; 82565; 84520

== ENCOUNTER 2022-07-17 09:04 | Outpatient (REF) | payer MEDICARE, OTHER, SELFPAY ==
--- NOTE | ~2022-07-17 | XR_ITS ---
EXAMINATION: XR CHEST CLINICAL INFORMATION: Abnormal weight loss COMPARISON: None TECHNIQUE: 2 views of the chest were obtained. FINDINGS: The lungs are hyperinflated but clear of acute process. The heart size and pulmonary vascularity is normal. No gross bony abnormality seen. XR/XR chest 2V IMPRESSION: Unremarkable chest examination.
== END 2022-07-17 09:05 | disposition home or self-care (01) ==
LOC: HO.XRAY 09:04
PROVIDERS: Visit Provider Internal Medicine Gastroenterology
DX: R63.4 Abnormal weight loss (principal); M25.50 Pain in unspecified joint
CPT/HCPCS: 71046; 99212

== ENCOUNTER → 2022-10-10 14:14 | Outpatient (BNVA) | payer MEDICARE, SELFPAY | PROVIDERS: Visit Provider Student in an Organized Health Care Education/Training Program | DX: M25.571 Pain in right ankle and joints of right foot (principal); M25.572 Pain in left ankle and joints of left foot | CPT/HCPCS: 99202 ==

== ENCOUNTER → 2022-12-08 11:07 | Outpatient (BNVA) | payer MEDICARE, SELFPAY | PROVIDERS: Visit Provider Internal Medicine Gastroenterology | DX: K22.719 Barrett's esophagus with dysplasia, unspecified (principal); F32.A Depression, unspecified; H54.7 Unspecified visual loss | CPT/HCPCS: 99212 ==

== ENCOUNTER 2023-01-10 09:44 | Day surgery (SDC) | payer MEDICARE, OTHER, SELFPAY ==
[2023-01-08 11:07] VITALS: BMI 18.9
--- NOTE | 2023-01-09 12:03 | P.CONAN_ITS ---
Documented by User: Audra Wild NP 01/09/23 12:03 HPI - Anesthesia Eval Consult details Narrative: 77yo F for Upper Endoscopy PMFSH Active Problems Active Problems: All Active Problems (Updated 10/10/22 @ 16:05 by Lucille Hairston MD) Garcia esophagus (Acute) Constipation by delayed colonic transit (Acute) Abnormal weight loss (Acute) Diarrhea (Acute) Arthralgia (Acute) UTI (urinary tract infection) (Acute) Past Medical History Medical History Anxiety Arthritis Garcia esophagus Cataract fragments in eye following surgery DDD (degenerative disc disease) Depression Diabetes Elevated cholesterol GERD (gastroesophageal reflux disease) Hiatal hernia History of anemia HTN (hypertension) HX: breast cancer Left bundle branch block (LBBB) Low back pain Macular degeneration Weakness Family History Family History Father No problems noted. 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 Meds Allergies Allergy/AdvReac Type Severity Reaction Status Date / Time clive [CLIVE] Allergy Severe Hives, Verified 12/08/22 11:11 facial swelling Penicillins [PCN] Allergy Severe HIVES Verified 12/08/22 11:11 poison maral extract Allergy Severe Hives, Verified 12/08/22 11:11 [POISON MARAL] facial swelling bee pollen [bee stings] Allergy Anaphylaxis Verified 12/08/22 11:11 Home Medications Medication Instructions Recorded Confirmed Last Taken Type carboxymethylcellulose sodium 1 % 1 drp ophthalmic (eye) BID 11/26/20 06/17/21 Unknown History eye drops in a dropperette coQ10 (ubiquinol) 100 mg capsule 200 mg PO DAILY 11/26/20 06/17/21 Unknown History cyclosporine 0.05 % eye drops in a drp 11/26/20 Unknown History dropperette (Restasis) iron 11/26/20 Unknown History losartan 25 mg tablet 1 tab PO DAILY 11/26/20 06/17/21 Unknown History magnesium tab PO 11/26/20 Unknown History jfjpafrfisoc-rsdoadcs-bfrapj 1 tab PO DAILY 11/26/20 06/17/21 Unknown History tablet (Multivitamin 50 Plus tablet) omega-3 fatty acids 1,000 mg PO DAILY 11/26/20 06/17/21 06/22/21 History vit C 250 mg-vit E 90 mg-zinc 40 1 tab PO BID 11/26/20 06/17/21 Unknown History mg-copper 1 fg-bqfgzh-fgpyth capsule (PreserVision AREDS-2) vitamin B complex 1 cap PO DAILY 11/26/20 06/17/21 Unknown History white petrolatum-mineral oil 94 1 appl ophthalmic (eye) BEDTIME 11/26/20 06/17/21 Unknown History %-3 % eye ointment (Systane Nighttime) fluoride (sodium) 1.1 % dental appl PO 07/25/21 Unknown History cream (SF 5000 Plus) fluoxetine 40 mg capsule 40 mg PO DAILY 07/17/22 Unknown History oxcarbazepine 300 mg tablet 300 mg PO DAILY PRN 07/17/22 Unknown History trazodone 150 mg tablet 150 - 300 mg PO BEDTIME PRN 07/17/22 Unknown History metformin 500 mg tablet See Rx Instructions PO BID 10/10/22 Unknown History pravastatin 10 mg tablet 10 mg PO DAILY 10/10/22 Unknown History repaglinide 0.5 mg tablet 0.5 mg PO TID 10/10/22 Unknown History zolpidem 10 mg tablet 10 mg PO BEDTIME Insomnia 10/10/22 Unknown History Exam Exam Date and Time: January 09, 2023 1203 Height,Weight and Vital Signs: Height 5 ft Weight 43.998 kg Assessment and Plan Assessment Anesthesia Assessment: Chart Reviewed Final Anesthetic Review Family History of Problems with Anesthesia: No History of Problems with Anesthesia: No Documented by User: Lou Crespo MD 01/10/23 10:23 [facility] Past Medical History Medical History Anxiety Arthritis Garcia esophagus Cataract fragments in eye following surgery DDD (degenerative disc disease) Depression Diabetes Elevated cholesterol GERD (gastroesophageal reflux disease) Hiatal hernia History of anemia HTN (hypertension) HX: breast cancer Left bundle branch block (LBBB) Low back pain Macular degeneration Weakness Family History Family History Father No problems noted. 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 Meds Allergies Allergy/AdvReac Type Severity Reaction Status Date / Time clive [CLIVE] Allergy Severe Hives, Verified 12/08/22 11:11 facial swelling Penicillins [PCN] Allergy Severe HIVES Verified 12/08/22 11:11 poison maral extract Allergy Severe Hives, Verified 12/08/22 11:11 [POISON MARAL] facial swelling bee pollen [bee stings] Allergy Anaphylaxis Verified 12/08/22 11:11 Home Medications Medication Instructions Recorded Confirmed Last Taken Type carboxymethylcellulose sodium 1 % 1 drp ophthalmic (eye) BID 11/26/20 06/17/21 Unknown History eye drops in a dropperette coQ10 (ubiquinol) 100 mg capsule 200 mg PO DAILY 11/26/20 06/17/21 Unknown History cyclosporine 0.05 % eye drops in a drp 11/26/20 Unknown History dropperette (Restasis) iron 11/26/20 Unknown History losartan 25 mg tablet 1 tab PO DAILY 11/26/20 06/17/21 Unknown History magnesium tab PO 11/26/20 Unknown History bydsttoucfel-hpiwnekx-npomkr 1 tab PO DAILY 11/26/20 06/17/21 Unknown History tablet (Multivitamin 50 Plus tablet) omega-3 fatty acids 1,000 mg PO DAILY 11/26/20 06/17/21 06/22/21 History vit C 250 mg-vit E 90 mg-zinc 40 1 tab PO BID 11/26/20 06/17/21 Unknown History mg-copper 1 jv-wjsfok-kdslom capsule (PreserVision AREDS-2) vitamin B complex 1 cap PO DAILY 11/26/20 06/17/21 Unknown History white petrolatum-mineral oil 94 1 appl ophthalmic (eye) BEDTIME 11/26/20 06/17/21 Unknown History %-3 % eye ointment (Systane Nighttime) fluoride (sodium) 1.1 % dental appl PO 07/25/21 Unknown History cream (SF 5000 Plus) fluoxetine 40 mg capsule 40 mg PO DAILY 07/17/22 Unknown History oxcarbazepine 300 mg tablet 300 mg PO DAILY PRN 07/17/22 Unknown History trazodone 150 mg tablet 150 - 300 mg PO BEDTIME PRN 07/17/22 Unknown History metformin 500 mg tablet See Rx Instructions PO BID 10/10/22 Unknown History pravastatin 10 mg tablet 10 mg PO DAILY 10/10/22 Unknown History repaglinide 0.5 mg tablet 0.5 mg PO TID 10/10/22 Unknown History zolpidem 10 mg tablet 10 mg PO BEDTIME Insomnia 10/10/22 Unknown History Exam Airway Mallampati Class: II (multiple missing) TM Dist: >3cm Neck ROM: Full Heart: rrr Lungs: cta Assessment and Plan Assessment Anesthesia Assessment: Anesthesia Plan Discussed Final Anesthetic Review NPO: Yes ASA Class: III Final Preanesthetic Review: No Changes in Pt Med Stat, Meds/Allgs Chart Reviewed and Consent Obtained/Reviewed Patient Risk: Intermediate Procedure Risk: Intermediate Anesthetic Plan Anesthetic Plan: MAC: Disposition: Standard PACU
[2023-01-10 10:31] LABS: Glucose, Whole Blood 174 mg/dL (60-115)
--- NOTE | 2023-01-10 10:35 | P.CONAN_ITS ---
[facility] Active Problems Active Problems: All Active Problems (Updated 10/10/22 @ 16:05 by Lucille Hairston MD) Garcia esophagus (Acute) Constipation by delayed colonic transit (Acute) Abnormal weight loss (Acute) Diarrhea (Acute) Arthralgia (Acute) UTI (urinary tract infection) (Acute) Past Medical History Medical History Anxiety Arthritis Garcia esophagus Cataract fragments in eye following surgery DDD (degenerative disc disease) Depression Diabetes Elevated cholesterol GERD (gastroesophageal reflux disease) Hiatal hernia History of anemia HTN (hypertension) HX: breast cancer Left bundle branch block (LBBB) Low back pain Macular degeneration Weakness Family History Family History Father No problems noted. 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 Meds Allergies Allergy/AdvReac Type Severity Reaction Status Date / Time clive [CLIVE] Allergy Severe Hives, Verified 12/08/22 11:11 facial swelling Penicillins [PCN] Allergy Severe HIVES Verified 12/08/22 11:11 poison maral extract Allergy Severe Hives, Verified 12/08/22 11:11 [POISON MARAL] facial swelling bee pollen [bee stings] Allergy Anaphylaxis Verified 12/08/22 11:11 Active Medications: Current Medications Lactated Ringer's (Lr) 1,000 mls @ 100 mls/hr IVCONT .Q10H [facility] Home Medications Medication Instructions Recorded Confirmed Last Taken Type carboxymethylcellulose sodium 1 % 1 drp ophthalmic (eye) BID 11/26/20 06/17/21 Unknown History eye drops in a dropperette coQ10 (ubiquinol) 100 mg capsule 200 mg PO DAILY 11/26/20 06/17/21 Unknown History cyclosporine 0.05 % eye drops in a drp 11/26/20 Unknown History dropperette (Restasis) iron 11/26/20 Unknown History losartan 25 mg tablet 1 tab PO DAILY 11/26/20 06/17/21 Unknown History magnesium tab PO 11/26/20 Unknown History vpqhukltijtg-nagugrzj-salcde 1 tab PO DAILY 11/26/20 06/17/21 Unknown History tablet (Multivitamin 50 Plus tablet) omega-3 fatty acids 1,000 mg PO DAILY 11/26/20 06/17/21 06/22/21 History vit C 250 mg-vit E 90 mg-zinc 40 1 tab PO BID 11/26/20 06/17/21 Unknown History mg-copper 1 mz-yomzxg-grpjmm capsule (PreserVision AREDS-2) vitamin B complex 1 cap PO DAILY 11/26/20 06/17/21 Unknown History white petrolatum-mineral oil 94 1 appl ophthalmic (eye) BEDTIME 11/26/20 Unknown History %-3 % eye ointment (Systane Nighttime) fluoride (sodium) 1.1 % dental appl PO 07/25/21 Unknown History cream (SF 5000 Plus) fluoxetine 40 mg capsule 40 mg PO DAILY 07/17/22 Unknown History oxcarbazepine 300 mg tablet 300 mg PO DAILY PRN 07/17/22 Unknown History trazodone 150 mg tablet 150 - 300 mg PO BEDTIME PRN 07/17/22 Unknown History metformin 500 mg tablet See Rx Instructions PO BID 10/10/22 Unknown History pravastatin 10 mg tablet 10 mg PO DAILY 10/10/22 Unknown History repaglinide 0.5 mg tablet 0.5 mg PO TID 10/10/22 Unknown History zolpidem 10 mg tablet 10 mg PO BEDTIME Insomnia 10/10/22 Unknown History Exam Exam Date and Time: January 10, 2023 1035 Height,Weight and Vital Signs: Height 5 ft Weight 43.998 kg Pertinent Lab Results Pertinent Lab Results: Laboratory Tests 01/10/23 10:27 POC Glucose 174 H Airway Mallampati Class: II (multiple missing) TM Dist: >3cm Neck ROM: Full Heart: rrr Lungs: cta Assessment and Plan Assessment Anesthesia Assessment: Anesthesia Plan Discussed and Chart Reviewed Final Anesthetic Review Family History of Problems with Anesthesia: No History of Problems with Anesthesia: No NPO: Yes ASA Class: III Final Preanesthetic Review: No Changes in Pt Med Stat, Meds/Allgs Chart Reviewed and Consent Obtained/Reviewed Patient Risk: Intermediate Procedure Risk: Intermediate Anesthetic Plan Anesthetic Plan: MAC: Disposition: Standard PACU
[2023-01-10 10:41] VITALS: BP 173/75; PULSE 72; RESP 16; TEMP 36.5; O2SAT 98; BMI 19.4
[2023-01-10] MEDS: Lactated Ringers 1,000 ML 100 ML IVCONT (10:51)
--- NOTE | 2023-01-10 11:12 | MHC.SHP ---
Pre-Procedural Eval Section A Date of Service: 01/10/23 Section B Chief Complaint: Garcia's esophagus with dysplasia, unspecified Relevant Family History (Specify if Yes): No Relevant Social History: None Present Medications: see Short Stay Collaborative assessment Medical History: Significant History (Anxiety Arthritis Garcia esophagus Cataract fragments in eye following surgery DDD (degenerative disc disease) Depression Diabetes Elevated cholesterol GERD (gastroesophageal reflux disease) Hiatal hernia History of anemia HTN (hypertension) HX: breast cancer Left bundle branch block (LBBB) Low ashok) History of Previous Operations: Relevant previous surgery/procedure and date(s) (History of breast lump/mass excision History of colonoscopy History of hysterectomy Hx of bilateral mastectomy Hx of cornea transplant Hx of endoscopy) Allergies: Allergies Allergy/AdvReac Type Severity Reaction Status Date / Time clive [CLIVE] Allergy Severe Hives, Verified 12/08/22 11:11 facial swelling Penicillins [PCN] Allergy Severe HIVES Verified 12/08/22 11:11 poison maral extract Allergy Severe Hives, Verified 12/08/22 11:11 [POISON MARAL] facial swelling bee pollen [bee stings] Allergy Anaphylaxis Verified 12/08/22 11:11 Review of Systems Sugical H&P ROS: Negative: Constitution, Cardiovascular, Respiratory, Neurological, Psychiatric, Hem-Onc, Allergic/Immunologic, Gastrointestinal, Genitourinary, Musculoskeletal, Integumentary, Endocrine and Eyes/Ears/Nose/Throat Exam Surgical H&P Exam: Normal: HEENT, Normal: Heart, Normal: Lungs, Normal: Extremities, Normal: Abdomen, Normal: Skin and Normal: Neurological Plan Diagnosis/Plan: Unchanged I have reviewed the history and physical and performed a pertinent physical examination on my patient. No changes have occurred unless specified. Time Spent With Patient Time: Total time managing care of this patient today ____ minutes.
--- NOTE | 2023-01-10 11:44 | P.OP_ITS ---
Operative Note Operative Note Date of Service: 01/10/23 Narrative: Procedure Description: EGD Indication: hx of barretts Anesthesia: MAC FLEXIBLE TRANSORAL UPPER GASTROINTESTINAL ENDOSCOPY UPPER ENDOSCOPY Consent: Indications for the procedure and potential complications of bleeding, perforation, reaction to medications and missed diagnosis were discussed with the patient and informed consent was obtained. Instrument: Olympus GIF H 190 J mid size upper endoscope Monitoring: Vital signs and clinical assessment, continuous EKG monitoring, Pulse oximetry, Carbon Dioxide monitoring and blood pressure monitoring were done throughout the procedure. Procedure: The patient was placed in the left lateral decubitis position and pre-procedure medications were administered and a bite block was placed. The endoscope was inserted into the mouth and advanced under direct vision to the third part of duodenum. A careful inspection was made as the upper endoscope was withdrawn including a retroflexed examination of the proximal stomach; Findings and interventions are described below. Findings: Larynx:normal Esophagus: GE junction at 38? cm, diaphragm hiatus at 40 cm, few islands of salmon pink mucosa noted consistent with Barretts esophagus C0 M1 by [place] classification. very mild esophagitis seen. Biopsies were taken as well as brushings for WATS3D. Stomach: Normal mucosa. Several fundic gland polyps seen. Grade 3 flap valve on retroflexed examination of the cardia. Duodenum: Normal bulb and descending duodenum Intervention: Biopsies and brushings Impression/Findings: Barretts-- hiatal hernia PLAN: await biopsies, if no dysplasia or barretts then repeat EGD in 3 years if dysplasia then repeat EGD in 2-3 months with hybrid APC
[2023-01-10 11:50] VITALS: BP 91/36; PULSE 72; RESP 16; TEMP 36.3; O2SAT 95
[2023-01-10 12:05] VITALS: BP 121/45; PULSE 71; RESP 16; O2SAT 94
[2023-01-10 12:20] VITALS: BP 149/58; PULSE 70; RESP 16; TEMP 36.8; O2SAT 97
== END 2023-01-10 12:42 | disposition home or self-care (01) ==
PROVIDERS: PCP Family Medicine; Visit Provider Internal Medicine Gastroenterology
PROC: 0DJ08ZZ Inspection of Upper Intestinal Tract, Via Natural or Artificial Opening Endoscopic (ICD-10-PCS; CPT 43235; principal; 2023-01-10 11:20)
DX: K20.80 Other esophagitis without bleeding (principal); K31.7 Polyp of stomach and duodenum; K44.9 Diaphragmatic hernia without obstruction or gangrene; K21.9 Gastro-esophageal reflux disease without esophagitis; K59.01 Slow transit constipation; F41.1 Generalized anxiety disorder; F32.A Depression, unspecified; E11.9 Type 2 diabetes mellitus without complications; E78.00 Pure hypercholesterolemia, unspecified; Z85.3 Personal history of malignant neoplasm of breast; I10 Essential (primary) hypertension; I44.7 Left bundle-branch block, unspecified; Z79.899 Other long term (current) drug therapy; Z79.84 Long term (current) use of oral hypoglycemic drugs; Z88.0 Allergy status to penicillin
CPT/HCPCS: 43239; 82947; 88305

== ENCOUNTER → 2023-01-26 10:54 | Outpatient (BNVA) | payer MEDICARE, SELFPAY | PROVIDERS: PCP Family Medicine; Visit Provider Internal Medicine Gastroenterology | DX: K22.719 Barrett's esophagus with dysplasia, unspecified (principal); R63.4 Abnormal weight loss; Z68.1 Body mass index [BMI] 19.9 or less, adult; K59.01 Slow transit constipation | CPT/HCPCS: 99212 ==

== ENCOUNTER 2023-08-03 10:49 | Outpatient (AMB) | payer MEDICARE, SELFPAY ==
--- NOTE | 2023-08-03 10:55 | A.OFFVIS_ITS ---
Intake Vital Signs 08/03/23 10:57 Height 4 ft 11 in Weight 95 lb BMI 19.2 BP 150/70 H Blood Pressure Location Rt brachial Position Sitting Pulse 98 Intake Visit Reasons: 4 mnth follow up Intake Note: Charlotte presents in the office as a 4 month follow up. CC: She states that she is having weird bowels lately. She is having more diarrhea but it is every once and a while but it will last the whole day. She states she eats the same foods all the time and does not feel like it is related to that. Allergies clive [CLIVE] Allergy (Severe, Verified 08/03/23 10:57) Hives, facial swelling Penicillins [PCN] Allergy (Severe, Verified 08/03/23 10:57) HIVES poison maral extract [POISON MARAL] Allergy (Severe, Verified 08/03/23 10:57) Hives, facial swelling bee pollen [bee stings] Allergy (Verified 08/03/23 10:57) Anaphylaxis HPI 4 mnth follow up HPI Details 78 yr old f here for f/u RECAP: ? she had dx of barretts esophagus at [place] ? repeat EGD Oct 2018 at [facility] and was apparently normal, apart from hiatal hernia ? she admitted to hoarseness for 2-3 months ? sound slike she also had ph monitoring ?LEVI or pH impedance ? dry cough-mild, noticing more ? voice more squeaky ? advised to d/w pcp re; stopping benny-i, possible referral to ent or pulm for PFT--stopping benny-i mad eher feel much better ? SHe saw me 05/2019 c/o acute diarrheal illness and was orthostatic so was admitted to hospital for fluids ?? CT revealed small bowel thickening and abn lesion on pancreas, colitis ? MRI confirmed benign cyst, mild dilated PD ? was started on IV Rocephin and Flagyl and IV fluids and clear liquid diet, and she improved ?At f/u 12/03/2019 she was c/o chronic constipation but hadn't really given a good trial of miralax, so this was recommended ? EGD 10/2019- chronic inflammation, and barretts esophagus ? WATS 3D: indefinite for dysplasia, favors dysplasia ? EGD/colonoscopy; 02/2020--barretts esopahgus, moderate chronic inflammation, tortuous colon she had Hybrid APC x 2 sessions 11/2020 and 03/2021 WATS from sample neg for dysplasia, path also without dysplasia Rept EGD-06/23- looked good, barretts on WATS, no dysplasia, path with active esophagitis At visit 01/2022 she was waiting to see rheumatology, depression had improved, and was recovering from a bout of covid CTe 03/2022- done due to weight loss, unremarkable, stable pancreas cysts, degen spinal changes EGD 01/2023- Barretts-- hiatal hernia Path: Cardiofundic-type mucosa with moderate chronic inactive inflammation; no intestinal metaplasia seen. - Squamous mucosa within normal limits. ? INTERIM: she has noted change in stool, soft and in pieces, going much more often weight stable no nausea or vomiting no abdominal pain anxiety and depression are high due to her poor eye sight and general health she has poor energy she never went back to rheumatology --still has joint pains, EXAM: GENERAL: The patient is thin VITAL SIGNS:see workflow HEENT: Nonicteric sclerae, PERRLA, EOMI. Oropharynx clear. Moist mucous membranes. Conjunctivae appear well perfused. No thyroid mass. CHEST: Chest wall is nontender. HEART: Regular rate and rhythm without murmurs. LUNGS: Clear to auscultation bilaterally. ABDOMEN: Soft, positive bowel sounds, nontender, no organomegaly.no flank tenderness SKIN: No rash, no excessive bruising, petechiae, or purpura. NEUROLOGIC: Cranial nerves II-XII intact without motor/sensory deficit. visul loss noted Assessment & Plan (1) Garcia esophagus: no dysplasia 2/ altered bowle habit 3/ depression maybe driving the weight l oss but she has change in bowel habit--but need to r/o other path ?PLAN: 1/ will plan for colonoscopy with bx to r/o microscopic colitis, clears day before and then enemas on day of procedure [facility] Medical History Anxiety Arthritis Garcia esophagus Cataract fragments in eye following surgery DDD (degenerative disc disease) Depression Diabetes Elevated cholesterol GERD (gastroesophageal reflux disease) Hiatal hernia History of anemia HTN (hypertension) HX: breast cancer Left bundle branch block (LBBB) Low back pain Macular degeneration Weakness Surgical History History of breast lump/mass excision History of colonoscopy History of hysterectomy Hx of bilateral mastectomy Hx of cornea transplant Hx of endoscopy Family History Father No problems noted. 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
[2023-08-03 10:57] VITALS: BP 150/70; PULSE 98; BMI 19.2
== END 2023-08-03 11:18 | disposition home or self-care (01) ==
PROVIDERS: Visit Provider Internal Medicine Gastroenterology
DX: R63.4 Abnormal weight loss (principal); R19.7 Diarrhea, unspecified
CPT/HCPCS: 99213

== ENCOUNTER → 2023-08-03 10:49 | Outpatient (BNVA) | payer MEDICARE, SELFPAY | PROVIDERS: Visit Provider Internal Medicine Gastroenterology | DX: R63.4 Abnormal weight loss (principal); R19.7 Diarrhea, unspecified | CPT/HCPCS: 99212 ==

== ENCOUNTER 2023-10-30 11:00 | Day surgery (SDC) | payer MEDICARE, SELFPAY ==
--- NOTE | 2023-10-29 09:59 | HO.ANESPROP2 ---
Documented by User: Audra Wild NP 10/29/23 10:00 HPI - Anesthesia Eval Consult details Narrative: 78yo F for Colonoscopy PMFSH Active Problems Active Problems: All Active Problems (Updated 10/10/22 @ 16:05 by Lucille Hairston MD) Garcia esophagus (Acute) Constipation by delayed colonic transit (Acute) Abnormal weight loss (Acute) Diarrhea (Acute) Arthralgia (Acute) UTI (urinary tract infection) (Acute) Past Medical History Medical History Anxiety Arthritis Garcia esophagus Cataract fragments in eye following surgery DDD (degenerative disc disease) Depression Diabetes Elevated cholesterol GERD (gastroesophageal reflux disease) Hiatal hernia History of anemia HTN (hypertension) HX: breast cancer Left bundle branch block (LBBB) Low back pain Macular degeneration Weakness Family History Family History Father No problems noted. Mother Hx of heat stroke Family history of problems with anesthesia: No Surgical History Surgical History History of breast lump/mass excision History of colonoscopy History of hysterectomy Hx of bilateral mastectomy Hx of cornea transplant Hx of endoscopy History of Problems with Anesthesia: No Social History Social History Household Members: None Alcohol intake: never Patient Tobacco Use Status: Never used Tobacco Use of substances other than those prescribed or required for medical reasons: No Are you DNR?: No Advance Directives: No Advance Directives Information Provided: Yes Current occupational status: previously employed and retired 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 Allergies Allergy/AdvReac Type Severity Reaction Status Date / Time clive [CLIVE] Allergy Severe Hives, Verified 08/03/23 10:57 facial swelling Penicillins [PCN] Allergy Severe HIVES Verified 08/03/23 10:57 poison maral extract Allergy Severe Hives, Verified 08/03/23 10:57 [POISON MARAL] facial swelling bee pollen [bee stings] Allergy Anaphylaxis Verified 08/03/23 10:57 Home Medications Medication Instructions Recorded Confirmed Last Taken Type carboxymethylcellulose sodium 1 % 1 drp ophthalmic (eye) BID 11/26/20 06/17/21 Unknown History eye drops in a dropperette coQ10 (ubiquinol) 100 mg capsule 200 mg PO DAILY 11/26/20 06/17/21 Unknown History cyclosporine 0.05 % eye drops in a drp 11/26/20 Unknown History dropperette (Restasis) iron 11/26/20 Unknown History losartan 25 mg tablet 1 tab PO DAILY 11/26/20 06/17/21 Unknown History magnesium tab PO 11/26/20 Unknown History atpfutrmgvuf-ykosgklg-ynqdmr 1 tab PO DAILY 11/26/20 06/17/21 Unknown History tablet (Multivitamin 50 Plus tablet) omega-3 fatty acids 1,000 mg PO DAILY 11/26/20 06/17/21 06/22/21 History vit C 250 mg-vit E 90 mg-zinc 40 1 tab PO BID 11/26/20 06/17/21 Unknown History mg-copper 1 ms-ezpkgw-aiwqlh capsule (PreserVision AREDS-2) vitamin B complex 1 cap PO DAILY 11/26/20 06/17/21 Unknown History white petrolatum-mineral oil 94 1 appl ophthalmic (eye) BEDTIME 11/26/20 06/17/21 Unknown History %-3 % eye ointment (Systane Nighttime) fluoride (sodium) 1.1 % dental appl PO 07/25/21 Unknown History cream (SF 5000 Plus) fluoxetine 40 mg capsule 40 mg PO DAILY 07/17/22 Unknown History oxcarbazepine 300 mg tablet 300 mg PO DAILY PRN 07/17/22 Unknown History metformin 500 mg tablet See Rx Instructions PO BID 10/10/22 Unknown History pravastatin 10 mg tablet 10 mg PO DAILY 10/10/22 Unknown History epinephrine 0.3 mg/0.3 mL 0.3 ml IM ONCE PRN 01/26/23 Unknown History injection, auto-injector hydroxyzine HCl 50 mg tablet 50 mg PO BEDTIME 01/26/23 Unknown History losartan 50 mg tablet 50 mg PO DAILY 01/26/23 Unknown History mirtazapine 7.5 mg tablet 7.5 mg PO BEDTIME 01/26/23 Unknown History trazodone 100 mg tablet 100 mg PO BEDTIME 01/26/23 Unknown History trazodone 150 mg tablet 100 mg PO DAILY PRN 01/26/23 Unknown History trazodone 50 mg tablet 50 mg PO BEDTIME 01/26/23 Unknown History Assessment and Plan Assessment Anesthesia Assessment: Chart Reviewed Final Anesthetic Review Family History of Problems with Anesthesia: No History of Problems with Anesthesia: No Documented by User: Manolo Ortega MD 10/30/23 13:07 [facility] Past Medical History Medical History Anxiety Arthritis Garcia esophagus Cataract fragments in eye following surgery DDD (degenerative disc disease) Depression Diabetes Elevated cholesterol GERD (gastroesophageal reflux disease) Hiatal hernia History of anemia HTN (hypertension) HX: breast cancer Left bundle branch block (LBBB) Low back pain Macular degeneration Weakness Functional capacity: uses cane/walker Family History Family History Father No problems noted. 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 Allergies Allergy/AdvReac Type Severity Reaction Status Date / Time clive [CLIVE] Allergy Severe Hives, Verified 08/03/23 10:57 facial swelling Penicillins [PCN] Allergy Severe HIVES Verified 08/03/23 10:57 poison maral extract Allergy Severe Hives, Verified 08/03/23 10:57 [POISON MARAL] facial swelling bee pollen [bee stings] Allergy Anaphylaxis Verified 08/03/23 10:57 Home Medications Medication Instructions Recorded Confirmed Last Taken Type carboxymethylcellulose sodium 1 % 1 drp ophthalmic (eye) BID 11/26/20 06/17/21 Unknown History eye drops in a dropperette coQ10 (ubiquinol) 100 mg capsule 200 mg PO DAILY 11/26/20 06/17/21 Unknown History cyclosporine 0.05 % eye drops in a drp 11/26/20 Unknown History dropperette (Restasis) iron 11/26/20 Unknown History losartan 25 mg tablet 1 tab PO DAILY 11/26/20 06/17/21 Unknown History magnesium tab PO 11/26/20 Unknown History nwuxoqsgvfjo-bsnepicq-ukbtit 1 tab PO DAILY 11/26/20 06/17/21 Unknown History tablet (Multivitamin 50 Plus tablet) omega-3 fatty acids 1,000 mg PO DAILY 11/26/20 06/17/21 06/22/21 History vit C 250 mg-vit E 90 mg-zinc 40 1 tab PO BID 11/26/20 06/17/21 Unknown History mg-copper 1 rq-jjzxef-jqwimw capsule (PreserVision AREDS-2) vitamin B complex 1 cap PO DAILY 11/26/20 06/17/21 Unknown History white petrolatum-mineral oil 94 1 appl ophthalmic (eye) BEDTIME 11/26/20 06/17/21 Unknown History %-3 % eye ointment (Systane Nighttime) fluoride (sodium) 1.1 % dental appl PO 07/25/21 Unknown History cream (SF 5000 Plus) fluoxetine 40 mg capsule 40 mg PO DAILY 07/17/22 Unknown History oxcarbazepine 300 mg tablet 300 mg PO DAILY PRN 07/17/22 Unknown History metformin 500 mg tablet See Rx Instructions PO BID 10/10/22 Unknown History pravastatin 10 mg tablet 10 mg PO DAILY 10/10/22 Unknown History epinephrine 0.3 mg/0.3 mL 0.3 ml IM ONCE PRN 01/26/23 Unknown History injection, auto-injector hydroxyzine HCl 50 mg tablet 50 mg PO BEDTIME 01/26/23 Unknown History losartan 50 mg tablet 50 mg PO DAILY 01/26/23 Unknown History mirtazapine 7.5 mg tablet 7.5 mg PO BEDTIME 01/26/23 Unknown History trazodone 100 mg tablet 100 mg PO BEDTIME 01/26/23 Unknown History trazodone 150 mg tablet 100 mg PO DAILY PRN 01/26/23 Unknown History trazodone 50 mg tablet 50 mg PO BEDTIME 01/26/23 Unknown History Exam Airway Mallampati Class: II TM Dist: >3cm Neck ROM: Full Loose/Missing/Broken Teeth: No Heart: rr Lungs: cta b/l Assessment and Plan Assessment Anesthesia Assessment: Anesthesia Plan Discussed Final Anesthetic Review NPO: Yes ASA Class: III Final Preanesthetic Review: Meds/Allgs Chart Reviewed, Consent Obtained/Reviewed and Anes Risks/Benef Reviewed Patient Risk: Intermediate Procedure Risk: Intermediate Anesthetic Plan Anesthetic Plan: MAC: Disposition: Standard PACU
[2023-10-30 11:12] VITALS: BMI 19.4
--- NOTE | 2023-10-30 11:16 | MHC.SHP ---
Pre-Procedural Eval Section A - 24 Hr Update-Section A only Date of Service: 10/30/23 Section B - Complete if H&P > 30 days Chief Complaint: abn bowel habit Relevant Family History (Specify if Yes): No Relevant Social History: None Present Medications: see Short Stay Collaborative assessment Medical History: Significant History (Anxiety Arthritis Garcia esophagus Cataract fragments in eye following surgery DDD (degenerative disc disease) Depression Diabetes Elevated cholesterol GERD (gastroesophageal reflux disease) Hiatal hernia History of anemia HTN (hypertension) HX: breast cancer Left bundle branch block (LBBB) Low ashok) History of Previous Operations: Relevant previous surgery/procedure and date(s) (History of breast lump/mass excision History of colonoscopy History of hysterectomy Hx of bilateral mastectomy Hx of cornea transplant Hx of endoscopy) Allergies: Allergies Allergy/AdvReac Type Severity Reaction Status Date / Time clive [CLIVE] Allergy Severe Hives, Verified 08/03/23 10:57 facial swelling Penicillins [PCN] Allergy Severe HIVES Verified 08/03/23 10:57 poison maral extract Allergy Severe Hives, Verified 08/03/23 10:57 [POISON MARAL] facial swelling bee pollen [bee stings] Allergy Anaphylaxis Verified 08/03/23 10:57 Review of Systems Sugical H&P ROS: Negative: Constitution, Cardiovascular, Respiratory, Neurological, Psychiatric, Hem-Onc, Allergic/Immunologic, Gastrointestinal, Genitourinary, Musculoskeletal, Integumentary, Endocrine and Eyes/Ears/Nose/Throat Exam Surgical H&P Exam: Normal: HEENT, Normal: Heart, Normal: Lungs, Normal: Extremities, Normal: Abdomen and Normal: Skin and Significant Findings: Neurological (blind) Plan Diagnosis/Plan: Unchanged I have reviewed the history and physical and performed a pertinent physical examination on my patient. No changes have occurred unless specified. Time Spent With Patient Time: Total time managing care of this patient today ____ minutes.
[2023-10-30 11:28] VITALS: BP 167/74; PULSE 81; RESP 16; TEMP 37.6; O2SAT 98
[2023-10-30 11:42] LABS: Glucose, Whole Blood 184 mg/dL (60-115)
[2023-10-30] MEDS: Lactated Ringers 1,000 ML 100 ML IVCONT (11:52)
[2023-10-30] MEDS: Sodium Phosphate,Mono-Dibasic 133 ML ENEMA PR (11:52)
--- NOTE | 2023-10-30 12:29 | PC.NURSE ---
left lateral position for first fleet enema. medication started to come on of patients rectum. assisted to bathroom with clear output and one small piece of feces. second enema given per md order at bedside in room 11 standing bent over sarah well then half way of admin of medication patient was unable to sarah medicine. started to have instant diarrhea. sarah well. remains clear output. md mario aware. resting comftably in bed for her procedure.
--- NOTE | 2023-10-30 13:35 | P.OP_ITS ---
Operative Note Operative Note Date of Service: 10/30/23 Narrative: Operative Information Procedure Description: Colonoscopy Indication: abn bowel habit Anesthesia: MAC COLONOSCOPY Instrument: Olympus variable stiffness pediatric scope 190L Colonoscopy Monitoring: Vital signs and clinical assessment, continuous EKG monitoring, Pulse oximetry, Carbon Dioxide monitoring and blood pressure monitoring were done throughout the procedure. Colon withdrawal time was 10 minutes. Procedure: The patient was placed in the left lateral decubitis position and pre-procedure medications were administered. After a digital rectal examination of the ano-rectum, the video colonoscope was inserted into the rectum and advanced through the colon to the cecum/TI. The colonoscope was slowly withdrawn in a retrograde panoramic fashion and the colon mucosa was carefully examined including a retroflexed view of the rectum. Findings and interventions are described below. Procedure Difficulty: easy Findings: Terminal Ileum-not seen due to poor prep Random colon bx taken Cecum:normal but poor visibility due to formed stool, 8-10 mm sessile polyp removed with cold snare Ascending Colon: normal Transverse Colon -normal Descending Colon:normal Sigmoid Colon: normal Rectum: Retroflexion with small to medium internal hemorrhoids, grade I Anorectum - normal Colon preparation: [place] Bowel Preparation Scale Right colon; 1 Transverse colon: 1-2 Left colon; 2 (0 = Unprepared colon segment with mucosa not seen due to solid stool that cannot be cleared. 1 = Portion of mucosa of the colon segment seen, but other areas of the colon segment not well seen due to staining, residual stool and/or opaque liquid. 2 = Minor amount of residual staining, small fragments of stool and/or opaque liquid, but mucosa of colon segment seen well. 3 = Entire mucosa of colon segment seen well with no residual staining, small fragments of stool or opaque liquid) Impression and Post Procedure Diagnosis: polyp internal hemorrhoids Plan: High fiber diet leaflet Avoid straining at stool, epsom salts and sitz bath, anusol supps or cream Repeat Colonoscopy in 12 months if health allows or earlier if clinically indicated solid stool in cecum suggests she may be having constipation with overflow, Above findings were reviewed with the patient and relevant handouts were provided if indicated.
[2023-10-30 13:44] VITALS: BP 149/67; PULSE 69; RESP 16; TEMP 36.3; O2SAT 98
[2023-10-30 13:58] VITALS: BP 151/61; PULSE 71; RESP 16; TEMP 36.9; O2SAT 97
[2023-10-30 14:48] LABS: CDiff Gene PCR NEGATIVE (Negative)
== END 2023-10-30 14:23 | disposition home or self-care (01) ==
PROVIDERS: PCP Family Medicine; Visit Provider Internal Medicine Gastroenterology
PROC: 0DJD8ZZ Inspection of Lower Intestinal Tract, Via Natural or Artificial Opening Endoscopic (ICD-10-PCS; CPT 45378; principal; 2023-10-30 13:10)
DX: R19.4 Change in bowel habit (principal); D12.0 Benign neoplasm of cecum; K64.0 First degree hemorrhoids; R19.7 Diarrhea, unspecified; R63.4 Abnormal weight loss; Z68.1 Body mass index [BMI] 19.9 or less, adult; K22.70 Barrett's esophagus without dysplasia; K21.9 Gastro-esophageal reflux disease without esophagitis; E11.9 Type 2 diabetes mellitus without complications; E78.00 Pure hypercholesterolemia, unspecified; F32.A Depression, unspecified; I10 Essential (primary) hypertension; Z85.3 Personal history of malignant neoplasm of breast; Z79.84 Long term (current) use of oral hypoglycemic drugs; Z79.899 Other long term (current) drug therapy; Z94.7 Corneal transplant status; Z88.0 Allergy status to penicillin
CPT/HCPCS: 45385; 45380; 82947; 87493; 88305; J2704

== ENCOUNTER → 2023-10-30 11:00 | Outpatient (BNV) | payer MEDICARE, SELFPAY | PROVIDERS: PCP Family Medicine; Visit Provider Internal Medicine Gastroenterology | DX: R19.4 Change in bowel habit (principal); D12.0 Benign neoplasm of cecum; Z91.199 Patient's noncompliance with other medical treatment and regimen due to unspecified reason; K64.0 First degree hemorrhoids | CPT/HCPCS: 45380; 45385 ==

== ENCOUNTER 2024-04-09 20:01 | Emergency (ER) | payer MEDICARE, SELFPAY ==
--- NOTE | ~2024-04-09 | XR_ITS ---
EXAMINATION: XR ABDOMEN COMPLETE CLINICAL INDICATION: Pain. Concern for bowel obstruction. COMPARISON: None available. TECHNIQUE: 2 views of the abdomen. FINDINGS: The bowel gas pattern is normal with no evidence of ileus or obstruction. There is retained stool throughout the colon. No unusual soft tissue calcifications are noted. The bones are unremarkable. XR/XR abdomen min 2V IMPRESSION: 1. Nonobstructive bowel gas pattern. 2. Retained stool throughout the colon.
[2024-04-09 20:21] VITALS: BP 174/70; PULSE 77; RESP 16; TEMP 36.9; O2SAT 99; BMI 19.2
[2024-04-09 22:37] VITALS: BP 193/75; PULSE 78; RESP 18; TEMP 36.6; O2SAT 97
--- NOTE | 2024-04-10 00:12 | ED.SKABFB ---
HPI - Skin/Abscess/Foreign Bdy General Chief complaint: Skin/Abscess/Foreign Body Stated complaint: gluteal wound/abcess Time Seen by Provider: 04/09/24 22:11 Source: patient Mode of arrival: ambulatory Limitations: no limitations History of Present Illness ED Provider: Dr Kim HPI narrative: patient complaining about an opening near her rectum. MD complaint: abscess/boil Onset (ago): month(s) Related Data Home Medications ?Medication ?Instructions ?Recorded ?Confirmed carboxymethylcellulose sodium 1 % 1 drp ophthalmic (eye) BID 11/26/20 06/17/21 eye drops in a dropperette coQ10 (ubiquinol) 100 mg capsule 200 mg PO DAILY 11/26/20 06/17/21 cyclosporine 0.05 % eye drops in a drp 11/26/20 dropperette (Restasis) iron 11/26/20 losartan 25 mg tablet 1 tab PO DAILY 11/26/20 06/17/21 magnesium tab PO 11/26/20 senwefirlmzs-qymkdwkg-aylsru 1 tab PO DAILY 11/26/20 06/17/21 tablet (Multivitamin 50 Plus tablet) omega-3 fatty acids 1,000 mg PO DAILY 11/26/20 06/17/21 vit C 250 mg-vit E 90 mg-zinc 40 1 tab PO BID 11/26/20 06/17/21 mg-copper 1 uz-prshav-yspujp capsule (PreserVision AREDS-2) vitamin B complex 1 cap PO DAILY 11/26/20 06/17/21 white petrolatum-mineral oil 94 1 appl ophthalmic (eye) BEDTIME 11/26/20 06/17/21 %-3 % eye ointment (Systane Nighttime) fluoride (sodium) 1.1 % dental appl PO 07/25/21 cream (SF 5000 Plus) fluoxetine 40 mg capsule 40 mg PO DAILY 07/17/22 oxcarbazepine 300 mg tablet 300 mg PO DAILY PRN 07/17/22 metformin 500 mg tablet See Rx Instructions PO BID 10/10/22 pravastatin 10 mg tablet 10 mg PO DAILY 10/10/22 epinephrine 0.3 mg/0.3 mL 0.3 ml IM ONCE PRN 01/26/23 injection, auto-injector hydroxyzine HCl 50 mg tablet 50 mg PO BEDTIME 01/26/23 losartan 50 mg tablet 50 mg PO DAILY 01/26/23 mirtazapine 7.5 mg tablet 7.5 mg PO BEDTIME 01/26/23 trazodone 100 mg tablet 100 mg PO BEDTIME 01/26/23 trazodone 150 mg tablet 100 mg PO DAILY PRN 01/26/23 trazodone 50 mg tablet 50 mg PO BEDTIME 01/26/23 Previous Rx's ?Medication ?Instructions ?Recorded Magic Mouthwash 10 ml PO QID #240 mL 06/23/21 Diphen/Lido/Antacid 1:1:1 240 mL suspension famotidine 20 mg tablet 40 mg (2 x 20 mg) PO BEDTIME #180 05/09/23 tabs pantoprazole 40 mg tablet,delayed 40 mg PO BID #180 tabs 08/09/23 release lactulose 20 gram/30 mL oral 20 g (30 mL) PO TID #2,880 mL 04/10/24 solution psyllium seed (sugar) oral powder 1 tbsp PO DAILY #1,254 grams 04/10/24 (Metamucil (sugar) oral powder) Allergies Allergy/AdvReac Type Severity Reaction Status Date / Time clive [CLIVE] Allergy Severe Hives, Verified 04/09/24 20:21 facial swelling Penicillins [PCN] Allergy Severe HIVES Verified 04/09/24 20:21 poison maral extract Allergy Severe Hives, Verified 04/09/24 20:21 [POISON MARAL] facial swelling bee pollen [bee stings] Allergy Anaphylaxis Verified 04/09/24 20:21 Review of Systems Review of Systems: Yes all other systems are reviewed and are negative Neurologic: Denies Sensory deficit (Neuro) PMFSH Past Medical History Medical History Hiatal hernia Cataract fragments in eye following surgery Garcia esophagus Anxiety Depression History of anemia Macular degeneration HX: breast cancer Arthritis DDD (degenerative disc disease) Low back pain Diabetes Weakness Elevated cholesterol HTN (hypertension) GERD (gastroesophageal reflux disease) Left bundle branch block (LBBB) Surgical History Hx of cornea transplant Hx of bilateral mastectomy History of breast lump/mass excision History of hysterectomy Hx of endoscopy History of colonoscopy Family History Family History Father No problems noted. 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 Physical Exam Vital Signs: Vital Signs: Last Vital Signs Temp 98.3 F 04/10/24 00:30 Pulse 65 04/10/24 00:30 Resp 16 04/10/24 00:30 BP 184/82 H 04/10/24 00:30 Pulse Ox 97 04/09/24 22:37 O2 Del Method Room Air 04/09/24 22:37 O2 Flow Rate 97 04/10/24 00:30 BMI result Body Mass Index 19.2 Const: Other: Frail elderly female Nutritional Appearance: average body habitus Orientation/consciousness: oriented to person Limitations: no limitations HEENT: Head: Yes normal to inspection Ears: external ears normal General nose exam: Normal external nose present Mouth: Normal oral and palatal mucosa present and oropharynx normal Throat: Yes posterior oropharynx normal Eyes: General: appearance normal, both eyes and all related structures Neck: Other: supple Neck: Yes normal visual inspection Chest: Chest palpation & inspection: normal inspection of the chest Resp: Auscultation: clear to auscultation bilaterally Cardio: Jugular venous distension: no JVD Rate: regular rate Rhythm: regular rhythm Heart sounds: S1 normal heart sound present and S2 normal heart sound present GI: Inspection: Yes normal to inspection Palpation (GI): Soft to palpation, nontender and No hepatosplenomegaly present Auscultation: normal bowel sounds : Other: small area of skin tear at the 6oclock position. No stool in vault Skin: General skin exam: no rashes or lesions noted Neuro: General: oriented to person Cranial nerves: Yes CN's II-XII intact bilaterally Motor exam (neuro): 5/5 motor strength present throughout Sensory Exam: No Sensory deficit (Neuro) Extrem: General: Yes normal to inspection Psych: Appearance: grossly normal Course Reevaluation(s) Reevaluation #1: patient with a small skin tear, xray shows constipation, no sbo Time: 00:33 Medical Decision Making Differential Diagnosis Differential Diagnoses: The differential diagnosis associated with the presentation includes (abscess, skin tear, fecal impaction, sbo, constipation) Admission/Observation Consideration of admission/observation: Escalation of care including admission/observation considered (upon arrival admission was considered) Independent Interpretation I performed an independent interpretation of an: Plain X-Ray (large stool burden, no sbo) Tests considered The following testing was considered but not selected: CT of abdomen considered but patient with soft nonfocal abdomen Discharge Plan Discharge Clinical Impression: Chronic rectal fissure, Constipation Patient Disposition: Home, Self-Care Additional Instructions: take lactulose until you have completely liquid stool then take metamucil daily forever Prescriptions: New lactulose 20 gram/30 mL solution 20 g PO TID Qty: 2880 0RF Metamucil (sugar) Powder 1 tbsp PO DAILY Qty: 1254 0RF No Action famotidine 20 mg tablet 40 mg PO BEDTIME Qty: 180 0RF pantoprazole 40 mg tablet,delayed release (DR/EC) 40 mg PO BID Qty: 180 1RF losartan 25 mg tablet 1 tab PO DAILY vitamin B complex [Super B Complex] Capsule 1 cap PO DAILY Multivitamin 50 Plus Tablet 1 tab PO DAILY Refresh Celluvisc 1 % Dropperette 1 drp OPHTHALMIC (EYE) BID Restasis 0.05 % dropperette Fish Oil Capsule 1,000 mg PO DAILY magnesium Tablet PO Systane Nighttime 94-3 % Ointment 1 appl OPHTHALMIC (EYE) BEDTIME coQ10 (ubiquinol) 100 mg Capsule 200 mg PO DAILY PreserVision AREDS-2 250-90-40-1 mg Capsule 1 tab PO BID iron Magic Mouthwash Diphen/Lido/Antacid 1:1:1 240 mL suspension 10 ml PO QID Qty: 240 0RF Rx Instructions: Lidocaine Viscous 2 % 80mL; diphenhydramine 12.5 mg/5 mL 80mL; aluminum-mag hydrox-simeth [id number]/5mL 80mL fluoride (sodium) [SF 5000 Plus] 1.1 % cream PO oxcarbazepine 300 mg tablet 300 mg PO DAILY PRN fluoxetine 40 mg capsule 40 mg PO DAILY trazodone 150 mg tablet 100 mg PO DAILY PRN pravastatin 10 mg tablet 10 mg PO DAILY metformin 500 mg tablet See Rx Instructions PO BID Rx Instructions: 1,000mg QAM, 500mg QPM orally 2 times a day; trazodone 50 mg tablet 50 mg PO BEDTIME mirtazapine 7.5 mg tablet 7.5 mg PO BEDTIME hydroxyzine HCl 50 mg tablet 50 mg PO BEDTIME epinephrine 0.3 mg/0.3 mL auto-injector 0.3 ml IM ONCE PRN losartan 50 mg tablet 50 mg PO DAILY trazodone 100 mg tablet 100 mg PO BEDTIME Print Language: Chinese
[2024-04-10 00:30] VITALS: BP 184/82; PULSE 65; RESP 16; TEMP 36.8
[2024-04-10] MEDS: Lactulose 20 GM/30 ML SOLUTION PO (01:24)
[2024-04-10 01:47] VITALS: BP 186/96; PULSE 67; RESP 18; TEMP 36.8; O2SAT 98
== END 2024-04-10 01:59 | disposition home or self-care (01) ==
PROVIDERS: Emergency Provider Emergency Medicine; PCP Family Medicine
DX: K60.1 Chronic anal fissure (principal); K59.00 Constipation, unspecified; R10.9 Unspecified abdominal pain
CPT/HCPCS: 74019; 99283; 99284